=== PATIENT | male | born 1975 | race Caucasian/White ===

== ENCOUNTER 2020-03-06 13:45 | Outpatient (REF) | payer BC, SELFPAY ==
--- NOTE | 2020-03-06 13:36 | CT_ITS ---
EXAMINATION: CT ABDOMEN AND PELVIS WITHOUT AND WITH CONTRAST CLINICAL INFORMATION: Lesion right kidney status post cryoablation 11/03/2018. Follow-up. COMPARISON: CT abdomen and pelvis without and with contrast 03/09/2019 and 10/07/2018, CT-guided cryoablation 11/03/2018. Ultrasound kidneys 09/08/2018. TECHNIQUE: Multidetector volumetric imaging was performed of the abdomen and pelvis before and after the IV administration of 85 mL of Omnipaque 300 intravenous contrast. Sagittal and coronal reformatted images were obtained on the technologist's workstation. This CT examination was performed using dose optimization techniques as appropriate, variously including the following: *Automated exposure control *Adjustment of mA and/or kV according to patient size (this includes techniques or standardized protocols for targeted exams where dose is matched to indication/reason for exam; i.e. extremities or head) *Use of iterative reconstruction technique DLP: 1071 mGy-cm FINDINGS: LUNG BASES: There are 2 tiny pleural-based nodules under 4 mm left lateral base similar to prior exams. LIVER, GALLBLADDER, AND BILIARY TREE: The liver is normal in size and smooth in contour. There are 3 small stable subcentimeter hypodensities likely cysts, anterior left lobe series 3/, dome right lobe series 3/14 and inferior right lobe series 07/09. No interval hepatic parenchymal lesion. No intrahepatic ductal dilatation. There are multiple gallstones again seen in the gallbladder. No gallbladder dilatation or wall thickening or pericholecystic inflammatory changes. Common duct unremarkable. PANCREAS: Unremarkable SPLEEN: Unremarkable ADRENAL GLANDS: Unremarkable KIDNEYS AND URETERS: The kidneys are normal in size and enhance symmetrically. There is no hydronephrosis, hydroureter, calculi, or perinephric stranding. Left kidney shows no cystic or solid mass. The right kidney has lesion lateral interpolar region status post prior prior ablation. Measurements are obtained from the coronal and sagittal reconstructions and compared in same orientation with prior study. Current measurements are 2.0 x 2.3 x 2.2 cm. Prior post ablation measurements 2.6 x 2.4 x 2.8 cm in 03/09/2019. There is no enhancement appreciated. Precontrast attenuation is 15 HU and postcontrast attenuation 20 HU. Again, there is a small cyst medial interpolar region approximately 1.1 cm. BLADDER: Unremarkable GASTROINTESTINAL TRACT: No bowel obstruction or inflammatory changes in bowel or mesentery. Normal appendix. No ascites or fluid collection. ABDOMINAL WALL: Small fat-containing umbilical hernia approximately 2.2 x 1.3 x 2.6 cm. LYMPH NODES: No lymphadenopathy. VASCULAR: Unremarkable PELVIC VISCERA: Unremarkable OSSEOUS STRUCTURES: Unremarkable CT/CT abdomen pelvis wo/w con IMPRESSION: 1. Right renal mass slightly decreased in size since prior post ablation CT. No appreciable enhancement. Stable small right renal cyst. No adenopathy. 2. Probable small hepatic cyst stable. 3. Cholelithiasis. No gallbladder wall thickening or ductal dilatation.
[2020-03-06] MEDS: iohexoL 350 MG/ML 100 ML INFUS..BTL 85 ML IV (14:25)
== END 2020-03-06 13:46 | disposition home or self-care (01) ==
LOC: HO.CT 13:45
PROVIDERS: PCP Internal Medicine; Visit Provider Urology
DX: D41.00 Neoplasm of uncertain behavior of unspecified kidney (principal); R79.89 Other specified abnormal findings of blood chemistry
CPT/HCPCS: 74178; Q9967

== ENCOUNTER → 2020-03-21 11:50 | Outpatient (BNVA) | payer BC, SELFPAY | PROVIDERS: Visit Provider Urology | DX: Z76.89 Persons encountering health services in other specified circumstances (principal) ==

== ENCOUNTER 2020-04-08 08:22 | Emergency (ER) | payer BC, SELFPAY ==
[2020-04-08 08:24] VITALS: BP 177/95; PULSE 101; RESP 18; TEMP 36.6; O2SAT 97; BMI 33.0
--- NOTE | 2020-04-08 08:33 | XR_ITS ---
EXAMINATION: XR CHEST CLINICAL INFORMATION: Chest pain/SOB. COMPARISON: CT chest 09/16/2019 TECHNIQUE: Frontal view of the chest was obtained. FINDINGS: The lungs are hypoexpanded but clear of acute process. The heart size is normal. Mild prominence of perihilar markings seen. No pleural effusion. No gross bony abnormality. XR/XR chest 1V IMPRESSION: Hypoexpanded lungs without acute process. A repeat chest x-ray in inspiration and a lateral view can be performed
--- NOTE | 2020-04-08 08:33 | ECG_ITS ---
Test Reason : SHORTNESS OF BREATH Blood Pressure : / mmHG Vent. Rate : 097 BPM Atrial Rate : 097 BPM P-R Int : 140 ms QRS Dur : 094 ms QT Int : 374 ms P-R-T Axes : 002 -18 016 degrees QTc Int : 474 ms Normal sinus rhythm Minimal voltage criteria for LVH, may be normal variant Borderline ECG No previous ECGs available Referred By: Tatiana Valentine Electronically Signed By:PARDEEP VARGAS MD
[2020-04-08] MEDS: Albuterol Sulfate 90 MCG 8 GM INHALER 4 PUFF INHALE (09:02)
[2020-04-08 09:12] LABS: MANUAL DIFF FLAG NO
[2020-04-08 09:17] LABS: Hematocrit 43.2 % (42-52); Hemoglobin 14.8 g/dl (14.0-18.0); Imm Gran Abs Auto 0.01 X10*3/uL (0.00-0.03); Imm Gran Pct Auto 0.3 % (0.0-0.4); Lymphocytes Absolute Auto 0.9 X10*3/uL (1.2-4.9); Lymphocytes Percent Auto 23.9 % (20-40); Mean Corpuscular HGB Conc 34.3 g/dl (31.0-36.0); Mean Corpuscular Hemoglobin 28.9 pg (27.0-33.0); Mean Corpuscular Volume 84.4 fL (80-98); Mean Platelet Volume 9.3 fL (9.4-12.4); Monocytes Absolute Auto 0.3 X10*3/uL (0.1-1.2); Monocytes Percent Auto 7.5 % (2-11); Neutrophils Absolute Auto 2.6 X10*3/uL (2.0-8.3); Neutrophils Percent Auto 68.3 % (45-73); Platelet Count 141 X10*3/uL (160-400); Red Blood Count 5.12 X10*6/uL (4.60-5.80); Red Cell Distribution Width 12.1 % (11.0-16.0); White Blood Count 3.9 X10*3/uL (4.8-10.8)
[2020-04-08 09:43] LABS: Alanine Aminotransferase 100 U/L (0-40); Alkaline Phosphatase 46 U/L (39-117); Anion Gap 14 (12-20); Aspartate Amino Transferase 54 U/L (5-37); Bilirubin Direct 0.3 mg/dL (0.0-0.5); Bilirubin Total 0.5 mg/dL (0.0-1.0); Blood Urea Nitrogen 12 mg/dL (9-16); Calcium 7.9 mg/dL (8.4-10.2); Carbon Dioxide 25 mmol/L (22-29); Chloride 105 mmol/L (96-108); Creatinine Clr Calc Pharmacy 114.1; Estimated Glomerular Filt Rate > 60; Glucose Random 108 mg/dL (60-115); Lactate Dehydrogenase 315 U/L (118-273); Potassium 3.5 mmol/l (3.3-5.1); Sodium 140 mmol/L (135-145); Total Protein 6.6 g/dL (6.5-8.0)
[2020-04-08 09:49] LABS: B Type Natriuretic Peptide < 10 pg/mL (<100); Troponin-I High Sensitivity 30.8 ng/L (<3.5-35.0)
[2020-04-08 09:54] LABS: Influenza A PCR NEGATIVE (Negative); Influenza B PCR NEGATIVE (Negative); Resp Syncy Virus RNA Qual PCR NEGATIVE (Negative); SARS COV2 PCR INHOUSE POSITIVE (Negative)
[2020-04-08 10:00] LABS: Procalcitonin 0.08 ng/mL
[2020-04-08 10:03] LABS: Ferritin 985 ng/mL (20-250)
--- NOTE | 2020-04-08 10:06 | ED_ITS ---
HPI - SOB/Dyspnea General Chief Complaint: Dyspnea Stated Complaint: coughing,sob Time Seen by Provider: 04/08/20 08:33 Source: patient Mode of arrival: ambulatory History of Present Illness HPI Narrative: 44-year-old male with a past medical history of cholelithiasis, diverticulitis, fatty liver, hypertension, renal cancer, presenting to the ED complaining of fever T-max 101?, dry cough, difficulty breathing, chest tightness, and body aches x4 days. Reports pain worse with deep inspiration. 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 Denies known contact with [facility]. Denies chills, recent travel, LE edema, abdominal pain MD elicited complaint: shortness of breath, cough and chest pain Related Data Home Medications Medication Instructions Recorded Confirmed fluticasone propionate 50 1 spray INTRANASAL DAILY 02/21/20 02/21/20 mcg/actuation nasal spray,suspension Previous Rx's Medication Instructions Recorded azithromycin See Rx Instructions .ROUTE 04/08/20 .COMPLEX #6 tab benzonatate [Tessalon Perles] 100 mg PO BID PRN #14 cap 04/08/20 prednisone 40 mg PO DAILY 5 Days #10 tab 04/08/20 Allergies Allergy/AdvReac Type Severity Reaction Status Date / Time Penicillins [PENICILLINS] Allergy Severe ANAPHYLAXIS Verified 02/21/20 11:08 strawberry Allergy Severe swelling Verified 02/21/20 11:08 penicillin V Allergy Unknown anaphylaxis Verified 02/21/20 11:08 Review of Systems Review of Systems: Constitutional: No Weight loss, + Fever, No Chills, No Night Sweats, No Fatigue, No Malaise ENT/Mouth: No Nasal Congestion, No Sinus Pain, No Hoarseness, No sore throat Cardiovascular: + Chest Pain, + SOB, + Dyspnea on Exertion, No Orthopnea, No Edema, No Palpitations Respiratory: + Cough, No Sputum, No Wheezing Gastrointestinal: No Nausea, No Vomiting, + Diarrhea, No Constipation, No Abdominal pain Musculoskeletal: No joint pain, No Myalgias, No Joint Swelling Skin: No Skin Lesions, No rash Yes all other systems are reviewed and are negative [facility], [facility] Past Medical History Attestation statement: The following information was validated with the patient. Medical History (Updated 04/08/20 @ 13:12 by MURTAZA Cross) Cholelithiasis Diverticulitis Fatty liver Hypertension Obesity (BMI 30-39.9) Renal cancer Surgical History History of excision of lesion Family History Family History Father Liver cancer Hepatitis C Past heart attack Mother No problems noted. Paternal Grandmother Mouth cancer Sister Substance abuse Social History Social History Alcohol intake: never Smoking Status: Never smoker Smoked in Last 30 Days: No Use of substances other than those prescribed or required for medical reasons: No Advance Directives: No Advance Directives Information Provided: No Physical Exam Vital Signs: Vital Signs: Last Vital Signs Temp 97.8 F 04/08/20 08:24 Pulse 80 04/08/20 12:05 Resp 16 04/08/20 12:05 BP 177/95 H 04/08/20 08:24 Pulse Ox 94 04/08/20 12:05 Body Mass Index 33.0 Const: General: cooperative and healthy appearing Orie ntation/consciousness: patient oriented x3 Limitations: no limitations HENMT: Head: Yes normal to inspection Ears: hearing grossly normal bilaterally General nose exam: Normal external nose present Face and sinus: Yes normal facial exam Eyes: General: appearance normal, both eyes and all related structures EOM: EOMs intact bilaterally Neck: Neck: Yes normal visual inspection Resp: Effort & Inspection: normal respiratory effort Auscultation: clear to auscultation bilaterally, no rales, no rhonchi and no wheezes Cardio: Rate: regular rate Heart sounds: S1 normal heart sound present and S2 normal heart sound present GI: Inspection: Yes normal to inspection Palpation (GI): Soft to palpation Skin: Rashes: no rashes Wounds: no wounds Neuro: General: patient oriented x3 Gait exam (Neuro): Normal gait present Extrem: General: Yes normal to inspection Course Course Course Narrative: * Leukopenia of 3.9, ferritin/LDH/CRP elevated. AST/ALT mildly elevated * Troponin elevated 30.8 > will obtain 3 hour repeat > repeat 3 hour equivocal * CXR showing hypoexpanded lungs without acute process * 1138-repeat chest x-ray showing bilateral prominent facial markings in both lungs suspicious for interstitial pneumonitis > Azithromycin ordered. Will obtain dry CT chest due to patient's history. Is COVID-19 positive * Patient ambulated with pulse ox in the ED and maintain saturation of 94% on room air without any shortness of breath * Ground-glass infiltrates compatible with COVID-19 > lab/imaging results discussed with patient including worrisome signs and symptoms and very strict return precautions. He verbalized understanding and would like to be discharged home. MDM - SOB/Dyspnea MDM Narrative Medical decision making narrative: 44-year-old male with a past medical history of cholelithiasis, diverticulitis, fatty liver, hypertension, renal cancer, presenting to the ED complaining of fever T-max 101?, dry cough, difficulty breathing, chest tightness, and body aches x4 days. On exam mildly tachycardic, NAD/nontoxic appearing, lungs CTA. Concern for COVID-19/viral syndrome vs PE. Lower concern for bacterial infection. Low concern for CHF/ACS Plan: EKG, labs, CXR, COVID-19, albuterol, reassess Lab Data Result diagrams: 04/08/20 09:00 04/08/20 09:00 Labs: Lab Results 04/08/20 04/08/20 04/08/20 Range/Units 09:00 09:00 09:00 WBC 3.9 L (4.8-10.8) X10*3/uL RBC 5.12 (4.60-5.80) X10*6/uL Hgb 14.8 (14.0-18.0) g/dl Hct 43.2 (42-52) % MCV 84.4 (80-98) fL MCH 28.9 (27.0-33.0) pg MCHC 34.3 (31.0-36.0) g/dl RDW 12.1 (11.0-16.0) % Plt Count 141 L (160-400) X10*3/uL MPV 9.3 L (9.4-12.4) fL Immature Gran % (Auto) 0.3 (0.0-0.4) % Neut % (Auto) 68.3 (45-73) % Lymph % (Auto) 23.9 (20-40) % Kingfisher % (Auto) 7.5 (2-11) % Eos % (Auto) 0.0 (0-4) % Baso % (Auto) 0.0 (0-2) % Lymph # (Auto) 0.9 L (1.2-4.9) X10*3/uL Kingfisher # (Auto) 0.3 (0.1-1.2) X10*3/uL Eos # (Auto) 0.0 (0.0-0.4) X10*3/uL Baso # (Auto) 0.0 (0.0-0.2) X10*3/uL Abs Immat Gran (auto) 0.01 (0.00-0.03) X10*3/uL Absolute Neuts (auto) 2.6 (2.0-8.3) X10*3/uL Absolute Nucleated RBC 0.000 (0.0-0.012) X10*3/uL Nucleated RBC % (auto) 0.0 (0.0-0.2) /100WBC PT 13.4 H (10.8-13.0) SEC INR 1.1 (0.9-1.1) APTT 33.5 (24.1-38.0) SEC D-Dimer 219 NG/ML Hold Blue Top SEE NOTE Sodium 140 (135-145) mmol/L Potassium 3.5 (3.3-5.1) mmol/l Chloride 105 (96-108) mmol/L Carbon Dioxide 25 (22-29) mmol/L Anion Gap 14 (12-20) BUN 12 (9-16) mg/dL Creatinine 1.02 (0.5-1.4) mg/dL Estim Creat Clear Calc 114.1 Estimated GFR > 60 Random Glucose 108 (60-115) mg/dL Calcium 7.9 L (8.4-10.2) mg/dL Ferritin 985 H (20-250) ng/mL Total Bilirubin 0.5 (0.0-1.0) mg/dL Direct Bilirubin 0.3 (0.0-0.5) mg/dL AST 54 H (5-37) U/L ALT 100 H (0-40) U/L Alkaline Phosphatase 46 (39-117) U/L Lactate Dehydrogenase 315 H (118-273) U/L Troponin I High Sens (<3.5-35.0) ng/L C-Reactive Protein 2.60 H (< or = 0.50) mg/dL B-Natriuretic Peptide (<100) pg/mL Total Protein 6.6 (6.5-8.0) g/dL Albumin 4.0 (3.5-5.0) g/dL Procalcitonin ng/mL Coronavirus (PCR) (Negative) Influenza Type A (PCR) (Negative) Influenza Type B (PCR) (Negative) RSV RNA Qual (PCR) (Negative) 04/08/20 04/08/20 04/08/20 Range/Units 09:00 09:00 09:00 WBC (4.8-10.8) X10*3/uL RBC (4.60-5.80) X10*6/uL Hgb (14.0-18.0) g/dl Hct (42-52) % MCV (80-98) fL MCH (27.0-33.0) pg MCHC (31.0-36.0) g/dl RDW (11.0-16.0) % Plt Count (160-400) X10*3/uL MPV (9.4-12.4) fL Immature Gran % (Auto) (0.0-0.4) % Neut % (Auto) (45-73) % Lymph % (Auto) (20-40) % Kingfisher % (Auto) (2-11) % Eos % (Auto) (0-4) % Baso % (Auto) (0-2) % Lymph # (Auto) (1.2-4.9) X10*3/uL Kingfisher # (Auto) (0.1-1.2) X10*3/uL Eos # (Auto) (0.0-0.4) X10*3/uL Baso # (Auto) (0.0-0.2) X10*3/uL Abs Immat Gran (auto) (0.00-0.03) X10*3/uL Absolute Neuts (auto) (2.0-8.3) X10*3/uL Absolute Nucleated RBC (0.0-0.012) X10*3/uL Nucleated RBC % (auto) (0.0-0.2) /100WBC PT (10.8-13.0) SEC INR (0.9-1.1) APTT (24.1-38.0) SEC D-Dimer NG/ML Hold Blue Top Sodium (135-145) mmol/L Potassium (3.3-5.1) mmol/l Chloride (96-108) mmol/L Carbon Dioxide (22-29) mmol/L Anion Gap (12-20) BUN (9-16) mg/dL Creatinine (0.5-1.4) mg/dL Estim Creat Clear Calc Estimated GFR Random Glucose (60-115) mg/dL Calcium (8.4-10.2) mg/dL Ferritin (20-250) ng/mL Total Bilirubin (0.0-1.0) mg/dL Direct Bilirubin (0.0-0.5) mg/dL AST (5-37) U/L ALT (0-40) U/L Alkaline Phosphatase (39-117) U/L Lactate Dehydrogenase (118-273) U/L Troponin I High Sens 30.8 (<3.5-35.0) ng/L C-Reactive Protein (< or = 0.50) mg/dL B-Natriuretic Peptide < 10 (<100) pg/mL Total Protein (6.5-8.0) g/dL Albumin (3.5-5.0) g/dL Procalcitonin 0.08 ng/mL Coronavirus (PCR) POSITIVE A (Negative) Influenza Type A (PCR) NEGATIVE (Negative) Influenza Type B (PCR) NEGATIVE (Negative) RSV RNA Qual (PCR) NEGATIVE (Negative) 04/08/20 Range/Units 11:30 WBC (4.8-10.8) X10*3/uL RBC (4.60-5.80) X10*6/uL Hgb (14.0-18.0) g/dl Hct (42-52) % MCV (80-98) fL MCH (27.0-33.0) pg MCHC (31.0-36.0) g/dl RDW (11.0-16.0) % Plt Count (160-400) X10*3/uL MPV (9.4-12.4) fL Immature Gran % (Auto) (0.0-0.4) % Neut % (Auto) (45-73) % Lymph % (Auto) (20-40) % Kingfisher % (Auto) (2-11) % Eos % (Auto) (0-4) % Baso % (Auto) (0-2) % Lymph # (Auto) (1.2-4.9) X10*3/uL Kingfisher # (Auto) (0.1-1.2) X10*3/uL Eos # (Auto) (0.0-0.4) X10*3/uL Baso # (Auto) (0.0-0.2) X10*3/uL Abs Immat Gran (auto) (0.00-0.03) X10*3/uL Absolute Neuts (auto) (2.0-8.3) X10*3/uL Absolute Nucleated RBC (0.0-0.012) X10*3/uL Nucleated RBC % (auto) (0.0-0.2) /100WBC PT (10.8-13.0) SEC INR (0.9-1.1) APTT (24.1-38.0) SEC D-Dimer NG/ML Hold Blue Top Sodium (135-145) mmol/L Potassium (3.3-5.1) mmol/l Chloride (96-108) mmol/L Carbon Dioxide (22-29) mmol/L Anion Gap (12-20) BUN (9-16) mg/dL Creatinine (0.5-1.4) mg/dL Estim Creat Clear Calc Estimated GFR Random Glucose (60-115) mg/dL Calcium (8.4-10.2) mg/dL Ferritin (20-250) ng/mL Total Bilirubin (0.0-1.0) mg/dL Direct Bilirubin (0.0-0.5) mg/dL AST (5-37) U/L ALT (0-40) U/L Alkaline Phosphatase (39-117) U/L Lactate Dehydrogenase (118-273) U/L Troponin I High Sens 33.4 (<3.5-35.0) ng/L C-Reactive Protein (< or = 0.50) mg/dL B-Natriuretic Peptide (<100) pg/mL Total Protein (6.5-8.0) g/dL Albumin (3.5-5.0) g/dL Procalcitonin ng/mL Coronavirus (PCR) (Negative) Influenza Type A (PCR) (Negative) Influenza Type B (PCR) (Negative) RSV RNA Qual (PCR) (Negative) Discharge Plan Discharge Clinical Impression: COVID-19, Pneumonia due to COVID-19 virus Patient Disposition: Home, Self-Care Instructions: COVID-19 (Coronavirus Disease 2019) (ED) Additional Instructions: You have COVID-19, and pneumonia due to coronavirus You need to follow state and Federal guidelines for self isolation Azithromycin as antibiotic, take as prescribed In addition take prednisone which is a steroid to help with her breathing Use inhaler that was supplied to in the emergency department Mauroalexander Melidaconrado for coughing take as needed If her symptoms persist or worsen, if constant worsening chest pain, shortness breath, or fever unresolved by medications return to the ED immediately Call your doctor to inform them CDC Guidelines for home isolation: - Stay away from others - WEAR A MASK if you are sick AND STAY HOME - Cover your mouth and nose with a tissue when you cough or sneeze. Dispose of tissues in a lined trash can and wash your hands immediately with soap and water for at least 20 seconds. If soap and water are not available, clean hands with alcohol-based hand visitor services technician that contains at least 60% alcohol. - Clean your hands often with soap and water for at least 20 seconds - Avoid touching your eyes, nose and mouth with unwashed hands - Do not share dishes, drinking glasses, cups, eating utensils, towels, or bedding with other people in your home. After using these items, wash them thoroughly with soap and water or put in the technologist development. - Clean high-touch surfaces in your isolation area ( sick room and bathroom) every day; let a caregiver clean and disinfect high-touch surfaces in other areas of the home. Clean the area or item with soap and water or another detergent if it is dirty. Then, use a household disinfectant. - Limit contact with pets and animals: If you must care for a pet, wash your hands before and after interacting with them) Prescriptions: New azithromycin 250 mg tablet See Rx Instructions .ROUTE .COMPLEX Qty: 6 RF: 0 prednisone 20 mg tablet 40 mg PO DAILY 5 Days Qty: 10 RF: 0 benzonatate [Tessalon Perles] 100 mg capsule 100 mg PO BID PRN (Reason: cough) Qty: 14 RF: 0 No Action fluticasone propionate 50 mcg/actuation spray,suspension 1 spray intranasal DAILY RF: 0 Referrals: James Mcdonough MD [Primary Care Provider] - 2 days (call) Stand Alone Forms: Work/School Release
--- NOTE | 2020-04-08 10:16 | XR_ITS ---
EXAMINATION: XR CHEST CLINICAL INFORMATION: Chest pain and SOB. COMPARISON: None TECHNIQUE: 2 views of the chest were obtained. FINDINGS: Repeated chest reveals lungs to be better expanded with bilateral prominent interstitial markings in both lungs suspicious for interstitial pneumonitis. No confluent infiltrate or pleural effusion seen. The heart size and pulmonary vascularity is normal. No gross bony abnormality seen. XR/XR chest 2V IMPRESSION: Bilateral prominent fissure markings in both lungs suspicious for interstitial pneumonitis. No confluent infiltrate or pleural effusion seen.
[2020-04-08 10:29] LABS: INTERNATIONAL NORM RATIO 1.1 (0.9-1.1); Prothrombin Time 13.4 SEC (10.8-13.0)
[2020-04-08 10:32] LABS: D Dimer 219 NG/ML; Partial Thromboplastin Time 33.5 SEC (24.1-38.0)
--- NOTE | 2020-04-08 11:36 | CT_ITS ---
EXAMINATION: CT CHEST WITHOUT CONTRAST CLINICAL INFORMATION: Covid COMPARISON: Chest radiographs performed earlier today TECHNIQUE: Multidetector volumetric CT imaging of the chest was done. Axial MIP volume rendering provided. Sagittal and coronal reformatted images were obtained. This CT examination was performed using dose optimization techniques as appropriate, variously including the following: *Automated exposure control *Adjustment of mA and/or kV according to patient size (this includes techniques or standardized protocols for targeted exams where dose is matched to indication/reason for exam; i.e. extremities or head) *Use of iterative reconstruction technique DLP: 433 mGy-cm FINDINGS: LUNGS: Multifocal groundglass infiltrates seen scattered throughout the lungs characteristic of Covid 19 infection. No solid lung masses are seen MEDIASTINUM: The mediastinum is normal. PLEURA: There is no pleural effusion. No pleural mass or thickening. AXILLA: No lymphadenopathy. UPPER ABDOMEN: Multiple dependent small gallstones are present in the gallbladder without cholecystitis. There is one nondependent mural calcification seen medially which may represent a calcified polyp. OSSEOUS STRUCTURES: Unremarkable. CT/CT chest wo con IMPRESSION: Multifocal groundglass infiltrates compatible with Covid 19 pulmonary involvement.
[2020-04-08] MEDS: Azithromycin 500 MG TABLET PO (11:41)
[2020-04-08 11:49] VITALS: PULSE 78; RESP 16; O2SAT 96
--- NOTE | 2020-04-08 11:49 | PC.NURSE ---
WALKING O2 SAT DOWN TO 88% ON ROOM AIR. HR UP TO 160. PA AWARE. NO PLETH ON MACHINE TO SEE ACCURACY OF NUMBERS.,
--- NOTE | 2020-04-08 12:03 | PC.NURSE ---
PT REAMBULATED WITH A VISIBLE PLETH VITAL MACHINE. SAT NO LOWER THAN 94%
[2020-04-08 12:05] VITALS: PULSE 80; RESP 16; O2SAT 94
[2020-04-08 12:12] LABS: Troponin-I High Sensitivity 33.4 ng/L (<3.5-35.0)
[2020-04-08] MEDS: methylPREDNISolone Sod Succ/PF 125 MG/2 ML VIAL IVPUSH (12:18)
== END 2020-04-08 13:41 | disposition home or self-care (01) ==
PROVIDERS: Physician Assistant; Emergency Provider Emergency Medicine Emergency Medical Services; PCP Internal Medicine
DX: U07.1 COVID-19 (principal); J12.89 Other viral pneumonia; I10 Essential (primary) hypertension; Z85.53 Personal history of malignant neoplasm of renal pelvis
CPT/HCPCS: 0241U; 36415; 71045; 71046; 71250; 80048; 80076; 82728; 83615; 83880; 84145; 84484; 85025; 85379; 85610; 85730; 86140; 93005; 96374; 99284; J2930

== ENCOUNTER 2020-11-14 07:46 | Outpatient (REF) | payer BC, SELFPAY ==
--- NOTE | ~2020-11-14 | US_ITS ---
EXAMINATION: US RETROPERITONEAL LIMITED (RENAL ONLY) CLINICAL INFORMATION: Calculus of kidney; history of right renal neoplasm status-post cryoablation.. COMPARISON: CT abdomen pelvis 03/06/2020. Ultrasound renals 09/08/2018. X-ray KUB 08/03/2009. TECHNIQUE: Real-time imaging of the kidneys. FINDINGS: RIGHT KIDNEY: 12.9 x 6.9 x 7.7 cm (SAG x AP x TRV). The kidney is normal in size, contour, and echogenicity. Renal cortical thickness is normal. No renal calculi or hydronephrosis. At the interpolar aspect, a 1.7 cm maximal diameter simple cyst is seen. At the interpolar aspect medially, a 2.0 x 2.0 x 1.8 cm solid-appearing mass is seen. This shows no associated color Doppler flow. This corresponds with the mass seen at this location on the CT examination of the abdomen and pelvis dated 03/06/2020 (5:89). On the ultrasound examination dated 08/31/2018, this measured 2.7 x 2.5 x 2.5 cm. LEFT KIDNEY: 13.2 x 6.4 x 5.7 cm (SAG x AP x TRV). The kidney is normal in size, contour, and echogenicity. Renal cortical thickness is normal. No calculi or focal parenchymal lesions. No hydronephrosis. US/US renal BI IMPRESSION: 1. A right renal solid mass is redemonstrated, with dimensions as above. Recommend continued Urology evaluation and management. 2. A simple right renal cyst is as well noted.
== END 2020-11-14 07:47 | disposition home or self-care (01) ==
LOC: HO.US 07:46
PROVIDERS: Visit Provider Urology
DX: N20.0 Calculus of kidney (principal); C64.1 Malignant neoplasm of right kidney, except renal pelvis
CPT/HCPCS: 76775

== ENCOUNTER → 2020-12-13 13:55 | Outpatient (BNVA) | payer BC, SELFPAY | PROVIDERS: PCP Internal Medicine; Visit Provider Urology ==

== ENCOUNTER 2021-05-07 15:22 | Outpatient (REF) | payer BC, SELFPAY ==
--- NOTE | ~2021-05-07 | US_ITS ---
EXAMINATION: US RETROPERITONEAL COMPLETE (RENAL) CLINICAL INFORMATION: Malignant neoplasm of right kidney with history of cryoablation. COMPARISON: Renal ultrasound 11/14/2020. CT abdomen and pelvis 03/06/2020. TECHNIQUE: Real-time imaging of the kidneys and bladder. FINDINGS: RIGHT KIDNEY: 12.4 x 6.8 x 7.2 cm (SAG x AP x TRV). The kidney is normal in size, contour, and echogenicity. Renal cortical thickness is normal. No renal calculi or hydronephrosis. There is an echogenic mass lower pole measuring 2.4 x 2.4 x 2.2 cm which has undergone cryoablation. Previously it measured 2.0 x 2.0 x 1.8 cm. Previously visualized midpole cyst not seen at this time. LEFT KIDNEY: 13.5 x 6.5 x 6.1 cm (SAG x AP x TRV). The kidney is normal in size, contour, and echogenicity. Renal cortical thickness is normal. No calculi or focal parenchymal lesions. No hydronephrosis. BLADDER: Well distended and normal. Bilateral ureteral jets are demonstrated. Prevoid bladder volume is 164 mL. Postvoid bladder volume is 15 mL. PROSTATE: The prostate volume measures 26 mL. There is echogenic calcification seen. US/US retroperitoneal comp IMPRESSION: Solid echogenic mass lower pole right kidney now measures 2.4 x 2.4 x 2.2 cm. It has undergone cryoablation. On last ultrasound exam 12/01/2020, it measured 2.0 cm. Minimal change from previous study. Normal left kidney. Normal prostate gland with echogenic calcifications within. Normal bilateral ureteral jets seen. Tiny postvoid residual bladder volume of 15 mL.
== END 2021-05-07 15:23 | disposition home or self-care (01) ==
LOC: HO.US 15:22
PROVIDERS: PCP Internal Medicine; Visit Provider Urology
DX: C64.1 Malignant neoplasm of right kidney, except renal pelvis (principal)
CPT/HCPCS: 76770

== ENCOUNTER → 2021-06-12 11:50 | Outpatient (BNVA) | payer BC, SELFPAY | PROVIDERS: PCP Internal Medicine; Visit Provider Urology ==

== ENCOUNTER 2021-12-04 08:23 | Outpatient (REF) | payer BC, SELFPAY ==
--- NOTE | ~2021-12-04 | US_ITS ---
EXAMINATION: US RETROPERITONEAL LIMITED (RENAL ONLY) CLINICAL INFORMATION: Calculus of kidney. COMPARISON: Ultrasound renal 11/14/2020. CT abdomen pelvis 03/06/2020. TECHNIQUE: Real-time imaging of the kidneys. FINDINGS: RIGHT KIDNEY: 13.1 x 6.3 x 6.2 cm (SAG x AP x TRV). The kidney is normal in size, contour, and echogenicity. Renal cortical thickness is normal. There is a heterogeneous lesion in the anterior mid to lower pole. This measures 2.2 x 1.9 x 2.4 cm. This does not appear appreciably changed from previous exam when this measured 2.4 x 2.4 x 2.2 cm. No calculi. No hydronephrosis. LEFT KIDNEY: 13.5 x 7.1 x 5.9 cm (SAG x AP x TRV). The kidney is normal in size, contour, and echogenicity. Renal cortical thickness is normal. No calculi or focal parenchymal lesions. No hydronephrosis. US/US renal BI IMPRESSION: Stable appearance to the lesion in the anterior mid to lower pole the right kidney from previous ultrasounds. Normal left kidney.
== END 2021-12-04 08:24 | disposition home or self-care (01) ==
LOC: HO.HMGCX 08:23
PROVIDERS: PCP Internal Medicine; Visit Provider Urology
DX: N20.0 Calculus of kidney (principal)
CPT/HCPCS: 76775

== ENCOUNTER 2021-12-21 13:06 | Outpatient (AMB) | payer BC, SELFPAY ==
--- NOTE | 2021-12-21 10:36 | MHC.OFFVIS ---
Intake Intake Visit Reasons: 6mth follow up with US (US?) Intake Note: Patient is present for ultrasound follow up Reports no medication changes Forensic Identification Specialist Required: No Accompanied by: Self / Same As Patient Allergies Penicillins [PENICILLINS] Allergy (Severe, Verified 01/21/23 10:57) ANAPHYLAXIS strawberry Allergy (Severe, Verified 01/21/23 10:57) swelling penicillin V Allergy (Unknown, Verified 01/21/23 10:57) anaphylaxis Medication List - Last Reconciled 12/21/21 by Andrei Oro MD azithromycin take 500 mg today (day 1), then 250 mg for 4 days (days 2-5) benzonatate (Tessalon Perles) 100 mg PO BID PRN fluticasone propionate 50 mcg/actuation 1 spray intranasal DAILY prednisone 40 mg (2 x 20 mg) PO DAILY 5 days HPI HPI Comments History of Present Illness Details ?José VILLAGRAN is a very pleasant male. He is a patient of Dr. Mcdonough. He is seen for the following urologic conditions. - renal cancer Imaging results discussed - kids did play hockey this season Continue with q6 months imaging Has had 6 month [address] which showed cryotherapy effect Continue ultrasound every 6 months to [address] Renal lesion:? Renal carcinoma cryotherapy October 2018 Here for follow-up renal cell carcinoma ? They present for further of renal cell cancer ? The renal mass was diagnosed?incidentally, during evaluation for, GI symptoms.? Imaging included?08/30 , a renal ultrasound, showing a solid mass, 2-3.0 cm in size, on the right , a CT (computed tomography) scan of the abdomen/pelvis - 2.5cm mass right lower pole - no enhancement studies ?09/[address] (computed tomography) scan of the abdomen/pelvis - with contrast - 2.8cm right renal lesion anterior ?04/[address] (computed tomography) scan of the abdomen/pelvis, cryotherapy effect ?10/01 KUB normal 04/02 CT scan cryotherapy with effect maximum size 2 cm (18 month) - 11/01 renal ultrasound 2 cm right dense lesion - 05/05 renal ultrasound 2 cm right dense lesion with question of small stone on left - 12/03 renal ultrasound 2 cm right dense lesion ? Prior treatment(s) included?10/30 , cryotherapy.? Staging of initial cancer?10/30 Renal Biopsy, T1a.? 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 Current symptoms include? hematuria ?No ? dysuria ?No ? fever ?No ? chills ?No ? Recent labs include?10/30 , a creatinine 1.2 ?03/02 Cr 1.01, 12.20 Cr 1.02 ? Follow up imaging includes?03/02 Cystic change, no enhancement, good treatment effect.? PFS Medical History Hypertension Diverticulitis Renal cancer Fatty liver Cholelithiasis Obesity (BMI 30-39.9) Surgical History History of excision of lesion Family History Father Liver cancer Hepatitis C Past heart attack Mother No problems noted. Paternal Grandmother Mouth cancer Sister Substance abuse Social History Housing: House Alcohol intake: current Patient Tobacco Use Status: Never used Tobacco e-Cigarette/Vaping Use: Never Used Second Hand Smoke Exposure: No Current occupational status: employed Cognitive needs: No Hearing needs: No Vision needs: No Review of Systems Const Denies chills and Denies fever(s) Card Reports no additional complaints and Denies syncope Resp Denies cough GI Denies abdominal pain and Denies heartburn Reports as per HPI and Denies change in libido Neuro Denies syncope Psych Denies change in libido Endo Denies change in libido Physical Exam Const General: cooperative, healthy appearing, comfortable and no acute distress Orientation/consciousness: patient oriented x3 HEENT Face and sinus: Yes normal facial exam Mouth: moist mucous membranes Neck Neck: Yes normal visual inspection, Yes full ROM and Yes trachea midline Chest Chest palpation & inspection: normal inspection of the chest Resp Effort & Inspection: normal respiratory effort, able to speak in complete sentences and no respiratory distress GI Inspection: Yes normal to inspection Back/Spine/Pelvis Cervical Spine: normal cervical lordosis Thoracic/Lumbar Spine: thoracic and lumbar spine normal to inspection Skin General skin exam: no rashes or lesions noted Neuro General: patient oriented x3, gait normal, tone normal and moves all extremities Extrem General: Yes normal to inspection and Yes capillary refill normal Assessment & Plan Assessment & Plan (1) 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 Code(s): C64.9 - Malignant neoplasm of unspecified kidney, except renal pelvis Qualifiers: Laterality: right Qualified Code(s): C64.1 - Malignant neoplasm of right kidney, except renal pelvis Plan Six-month follow-up renal imaging Orders: Orders Creatinine 6 Months C64.1 - Malignant neoplasm of right kidney, except renal pelvis CT abdomen wo/w IV con 6 Months C64.1 - Malignant neoplasm of right kidney, except renal pelvis Blood Urea Nitrogen 6 Months C64.1 - Malignant neoplasm of right kidney, except renal pelvis Patient Instructions: Imaging studies, laboratory and physical exam results were discussed and reviewed in detail. No major barriers to patient understanding were identified. An opportunity to ask questions regarding the treatment plan was provided. All questions were answered. The patient expressed understanding and agreement with the above treatment plan. The patient is aware they should contact our office by phone for worsening of their current condition or the appearance of new urologic symptoms. Compliance is encouraged with any medications and followup testing that is ordered. It is a privilege to participate in the urologic care of your patient. If you have any questions or concerns regarding treatment for the above conditions, or other urologic issues, please do not hesitate to contact me. The office telephone contact is [phone]. This note is constructed using voice recognition software. While every effort has been made to ensure accuracy internal communications intern errors may have been included. Yours sincerely, Dr Andrei Oro MD, [facility] - Urology Providers of Expert, Compassionate Care for the Genitourinary System Coding Level of Care Code Est Pt Level 3 (97771) Diagnoses Malignant neoplasm of right kidney C64.1 Laterality: right
== END 2021-12-21 14:09 | disposition home or self-care (01) ==
LOC: HO.HUSH 13:06
PROVIDERS: PCP Internal Medicine; Visit Provider Urology
DX: C64.1 Malignant neoplasm of right kidney, except renal pelvis (principal)
CPT/HCPCS: 99499

== ENCOUNTER 2022-05-02 09:45 | Outpatient (REF) | payer BC, SELFPAY ==
[2022-05-02 11:17] LABS: MANUAL DIFF FLAG NO
[2022-05-02 11:23] LABS: Basophils Percent Auto 0.7 % (0-2); Eosinophils Absolute Auto 0.2 X10*3/uL (0.0-0.4); Eosinophils Percent Auto 3.3 % (0-4); Hematocrit 45.2 % (42.0-52.0); Hemoglobin 15.9 g/dl (14.0-18.0); Imm Gran Abs Auto 0.02 X10*3/uL (0.00-0.03); Imm Gran Pct Auto 0.3 % (0.0-0.4); Lymphocytes Absolute Auto 1.9 X10*3/uL (1.2-4.9); Lymphocytes Percent Auto 33.7 % (20-40); Mean Corpuscular HGB Conc 35.2 g/dl (31.0-36.0); Mean Corpuscular Hemoglobin 28.8 pg (27.0-33.0); Mean Corpuscular Volume 81.7 fL (80.0-98.0); Mean Platelet Volume 9.5 fL (9.4-12.4); Monocytes Absolute Auto 0.4 X10*3/uL (0.1-1.2); Monocytes Percent Auto 7.5 % (2-11); Neutrophils Absolute Auto 3.1 x10*3/uL (2.0-8.3); Neutrophils Percent Auto 54.5 % (45-73); Platelet Count 259 X10*3/uL (160-400); Red Blood Count 5.53 X10*6/uL (4.60-5.80); Red Cell Distribution Width 12.1 % (11.0-16.0); White Blood Count 5.8 X10*3/uL (4.8-10.8)
[2022-05-02 11:46] LABS: Alanine Aminotransferase 57 U/L (0-40); Albumin Level 4.3 g/dL (3.5-5.0); Alkaline Phosphatase 67 U/L (39-117); Anion Gap 10 (12-20); Aspartate Amino Transferase 25 U/L (5-37); Bilirubin Total 0.8 mg/dL (0.0-1.0); Blood Urea Nitrogen 12 mg/dL (9-16); Calcium 9.2 mg/dL (8.4-10.2); Carbon Dioxide 26 mmol/L (22-29); Chloride 108 mmol/L (96-108); Cholesterol 180 mg/dL; Estimated Glomerular Filt Rate > 60; Glucose Random 101 mg/dL (60-115); HDL Cholesterol 32 mg/dL; LDL Cholesterol Calculated 117 mg/dl; Potassium 3.5 mmol/L (3.3-5.1); Sodium 140 mmol/L (135-145); Total Protein 6.8 g/dL (6.5-8.0); Triglycerides 156 mg/dL
[2022-05-02 12:06] LABS: Free T4 (Free Thyroxine) 1.04 ng/dL (0.71-1.85); Thyroid Stimulating Hormone 2.03 uIU/mL (0.32-4.0)
[2022-05-02 12:11] LABS: Folate 12.5 ng/mL (> or = 4.0); Vitamin B12 383 pg/mL (200-900)
== END 2022-05-02 09:46 | disposition home or self-care (01) ==
LOC: HO.HMGCLDS 09:45
PROVIDERS: PCP Internal Medicine; Visit Provider Internal Medicine
DX: C64.1 Malignant neoplasm of right kidney, except renal pelvis (principal); E78.00 Pure hypercholesterolemia, unspecified
CPT/HCPCS: 36415; 80053; 80061; 82607; 82746; 84439; 84443; 85025

== ENCOUNTER 2022-06-12 14:15 | Outpatient (REF) | payer BC, SELFPAY ==
--- NOTE | ~2022-06-12 | CT_ITS ---
EXAMINATION: CT ABDOMEN WITHOUT AND WITH CONTRAST CLINICAL INFORMATION: Malignant neoplasm right kidney. COMPARISON: Renal ultrasound 11/14/2021, CT chest 04/08/2020, CT abdomen pelvis 03/06/2020 TECHNIQUE: Contiguous axial thin section helical images of the abdomen were performed before and after the administration of oral contrast and 85 mL of Omnipaque 350 intravenous contrast. The data set was reformatted in the coronal and sagittal planes and reviewed on an independent workstation. This CT examination was performed using dose optimization techniques as appropriate, variously including the following: *Automated exposure control *Adjustment of mA and/or kV according to patient size (this includes techniques or standardized protocols for targeted exams where dose is matched to indication/reason for exam; i.e. extremities or head) *Use of iterative reconstruction technique DLP: 731 mGy-cm. FINDINGS: LUNG BASES: The visualized lung bases are unremarkable. LIVER, GALLBLADDER, AND BILIARY TREE: The liver is normal in size, shape, and attenuation. 5 small hypodensities are seen in the liver, the largest measuring 6 mm (4:25). These are unchanged from the 2019 study and are consistent with benign simple cysts. No worrisome solid focal hepatic lesion or biliary ductal dilatation is present. Small layering gallstones present in the gallbladder which is otherwise unremarkable with no evidence of pericholecystic inflammatory changes. PANCREAS: Unremarkable. SPLEEN: Unremarkable. ADRENAL GLANDS: Unremarkable. KIDNEYS AND URETERS: The left kidney is unremarkable. Again seen is an area of prior ablation in the right kidney with residual masslike area which has decreased in size currently measuring 2.3 x 1.0 x 1.6 cm previously measuring 3.1 x 1.7 x 2.0 cm. This area shows no significant enhancement measuring 16 Hounsfield units prior to IV contrast and 16 Hounsfield units after IV contrast. A small benign Bosniak class I cyst is noted medially without change. No new renal masses. GASTROINTESTINAL TRACT: The visualized bowel unremarkable. ABDOMINAL WALL: No significant hernia is appreciated. LYMPH NODES: No retroperitoneal lymphadenopathy. VASCULAR: Unremarkable. OSSEOUS STRUCTURES: Mild degenerative changes in the spine most marked in the lower thoracic region. CT/CT abdomen wo/w IV con IMPRESSION: 1. Continued decrease in size of right renal mass status post ablation. 2. No evidence of metastatic disease. 3. Incidental note made of benign hepatic cysts, cholelithiasis and degenerative changes in the spine. Fleischner guidelines were followed.
[2022-06-12] MEDS: iohexoL 350 MG/ML 100 ML INFUS..BTL IV (14:50)
== END 2022-06-12 14:16 | disposition home or self-care (01) ==
LOC: HO.CT 14:15
PROVIDERS: PCP Internal Medicine; Visit Provider Urology
DX: C64.1 Malignant neoplasm of right kidney, except renal pelvis (principal)
CPT/HCPCS: 74170; Q9967

== ENCOUNTER → 2022-06-28 11:50 | Outpatient (BNVA) | payer BC, SELFPAY | PROVIDERS: PCP Internal Medicine; Visit Provider Urology | DX: Z13.89 Encounter for screening for other disorder (principal) ==

== ENCOUNTER 2022-12-27 08:19 | Outpatient (REF) | payer BC, SELFPAY ==
--- NOTE | ~2022-12-27 | US_ITS ---
EXAMINATION: US RETROPERITONEAL LIMITED (RENAL ONLY) CLINICAL INFORMATION: Malignant neoplasm of right kidney, except renal pelvis. COMPARISON: CT abdomen 06/12/2022. Renal ultrasound 12/04/2021 and 05/07/2021. TECHNIQUE: Real-time imaging of the kidneys. FINDINGS: RIGHT KIDNEY: 11.9 x 5.6 x 6.6 cm (SAG x AP x TRV). Right renal 2.3 x 1.6 x 2.1 cm heterogeneous, hypoechoic midpole cortical mass measured 2.2 x 1.9 x 2.4 cm on 12/04/2021 and 2.4 x 2.4 x 2.2 cm on 05/07/2021. There is a given history of cryoablation. CT scan of 06/12/2022 demonstrated a 2.3 x 1.0 x 1.6 cm mass. The previously identified right renal cyst is not seen, however, visualization is limited. No hydronephrosis. No renal calculi. LEFT KIDNEY: 12.8 x 7.1 x 5.8 cm (SAG x AP x TRV). No hydronephrosis. No renal calculi. Limited visualization. US/US renal BI IMPRESSION: Right renal 2.3 cm mass is stable in size with given history of cryoablation. No hydronephrosis. No renal calculi.
== END 2022-12-27 08:20 | disposition home or self-care (01) ==
LOC: HO.HMGCX 08:19
PROVIDERS: PCP Internal Medicine; Visit Provider Urology
DX: C64.1 Malignant neoplasm of right kidney, except renal pelvis (principal)
CPT/HCPCS: 76775

== ENCOUNTER 2023-01-21 10:55 | Outpatient (AMB) | payer BC, SELFPAY ==
--- NOTE | 2023-01-21 10:55 | MHC.OFFVIS ---
Intake Intake Visit Reasons: 6m/US(set) Intake Note: Patient is present for Telephone CT Scan Follow Up (Renal Cancer) Urology Med: None Antibiotic Allergy: Penicillins Blood Thinner: None Allergies Penicillins [PENICILLINS] Allergy (Severe, Verified 01/21/23 10:57) ANAPHYLAXIS strawberry Allergy (Severe, Verified 01/21/23 10:57) swelling penicillin V Allergy (Unknown, Verified 01/21/23 10:57) anaphylaxis HPI HPI Comments History of Present Illness Details ?José VILLAGRAN is a very pleasant male. He is a patient of Dr. Mcdonough. He is seen for the following urologic conditions. - renal cancer Telemedicine Evaluation 15 min Consultation [employer] Margie Video attempted Imaging results discussed - kids did play hockey this summer - freshman in high school Continue with q6 months imaging Has had 6 month and [address] which showed cryotherapy effect Continue ultrasound every 6 months to [address] Renal lesion:? Renal carcinoma cryotherapy October 2018 Here for follow-up renal cell carcinoma ? They present for further of renal cell cancer ? The renal mass was diagnosed?incidentally, during evaluation for, GI symptoms.? Imaging included?08/30 , a renal ultrasound, showing a solid mass, 2-3.0 cm in size, on the right , a CT (computed tomography) scan of the abdomen/pelvis - 2.5cm mass right lower pole - no enhancement studies - 09/[address] (computed tomography) scan of the abdomen/pelvis - with contrast - 2.8cm right renal lesion anterior - 04/[address] (computed tomography) scan of the abdomen/pelvis, cryotherapy effect, 10/01 KUB normal, 04/02 CT scan cryotherapy with effect maximum size 2 cm (18 month) - 11/01 renal ultrasound 2 cm right dense lesion, 05/05 renal ultrasound 2 cm right dense lesion with question of small stone on left, 12/03 renal ultrasound 2 cm right dense lesion - 07/04 CT scarring at right kidney ? Prior treatment(s) included?10/30 , cryotherapy ? Staging of initial cancer?10/30 Renal Biopsy, T1a ? 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 Recent labs include?10/30 , a creatinine 1.2 - 03/02 Cr 1.01, 12.20 Cr 1.02, 05/06 Cr 1.2 ? Follow up imaging includes?03/02 Cystic change, no enhancement, good treatment effect.? [facility] Medical History Hypertension Diverticulitis Renal cancer Fatty liver Cholelithiasis Obesity (BMI 30-39.9) Surgical History History of excision of lesion Family History Father Liver cancer Hepatitis C Past heart attack Mother No problems noted. Paternal Grandmother Mouth cancer Sister Substance abuse Social History Housing: House Alcohol intake: current Patient Tobacco Use Status: Never used Tobacco e-Cigarette/Vaping Use: Never Used Second Hand Smoke Exposure: No Current occupational status: employed Cognitive needs: No Hearing needs: No Vision needs: No Review of Systems Const All systems reviewed & are unremarkable except as noted in HPI and below Reports no additional complaints Resp Reports no additional complaints GI Reports no additional complaints Reports as per HPI Musc Reports no additional complaints Physical Exam Telemedicine evaluation Appropriate responses Regular breathing rate and rhythm HEENT Head: Yes normal to inspection Ears: hearing grossly normal bilaterally Eyes General: appearance normal, both eyes and all related structures Neck Neck: Yes normal visual inspection Chest Chest palpation & inspection: normal inspection of the chest Resp Effort & Inspection: normal respiratory effort and able to speak in complete sentences Assessment & Plan Assessment & Plan (1) 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 Code(s): C64.9 - Malignant neoplasm of unspecified kidney, except renal pelvis Qualifiers: Laterality: right Qualified Code(s): C64.1 - Malignant neoplasm of right kidney, except renal pelvis Plan Six month follow-up imaging Orders: Orders US renal BI 6 Months C64.1 - Malignant neoplasm of right kidney, except renal pelvis Patient Instructions: Imaging studies, laboratory and physical exam results were discussed and reviewed in detail. No major barriers to patient understanding were identified. An opportunity to ask questions regarding the treatment plan was provided. All questions were answered. The patient expressed understanding and agreement with the above treatment plan. The patient is aware they should contact our office by phone for worsening of their current condition or the appearance of new urologic symptoms. Compliance is encouraged with any medications and followup testing that is ordered. It is a privilege to participate in the urologic care of your patient. If you have any questions or concerns regarding treatment for the above conditions, or other urologic issues, please do not hesitate to contact me. The office telephone contact is [phone]. This note is constructed using voice recognition software. While every effort has been made to ensure accuracy high school library media specialist errors may have been included. Yours sincerely, Dr Andrei Oro MD, [facility] - Urology Providers of Expert, Compassionate Care for the Genitourinary System Telehealth Telehealth Location of provider rendering services: practice address Location of patient: address on file Patient Identification confirmed using: Name, : Yes Telehealth method: video Patient verbally consented to treatment: Yes Patient verbally consented to billing insurance company: Yes Patient informed of any privacy concerns related to visit: Yes Coding Level of Care Code Tele Est Pt Level 3 (60138) Diagnoses Malignant neoplasm of right kidney C64.1 Laterality: right
== END 2023-01-21 12:28 | disposition home or self-care (01) ==
LOC: HO.HUSH 10:55
PROVIDERS: PCP Internal Medicine; Visit Provider Urology
DX: C64.1 Malignant neoplasm of right kidney, except renal pelvis (principal)
CPT/HCPCS: 99213

== ENCOUNTER → 2023-01-21 10:55 | Outpatient (BNVA) | payer BC, SELFPAY | PROVIDERS: PCP Internal Medicine; Visit Provider Urology ==

== ENCOUNTER 2023-07-16 14:19 | Outpatient (REF) | payer BC, SELFPAY ==
--- NOTE | ~2023-07-16 | US_ITS ---
EXAMINATION: US RETROPERITONEAL LIMITED (RENAL ONLY) CLINICAL INFORMATION: Malignant neoplasm of right kidney, except renal pelvis. COMPARISON: Renal ultrasound 12/27/2022 and 12/04/2021. CT abdomen 06/12/2022. TECHNIQUE: Real-time imaging of the kidneys. Limited visualization due to bowel gas. FINDINGS: RIGHT KIDNEY: 12.6 x 6.5 x 6.8 cm (SAG x AP x TRV). Mid pole 1.8 x 2.0 x 1.7 cm heterogeneous, hypoechoic mass, previously measured 2.3 x 1.6 x 2.1 cm on 12/30/2022, and 2.0 x 2.0 x 1.8 cm on 11/14/2020. CT scan of June 12, 2022 demonstrated mass measuring 2.3 x 1.0 x 1.6 cm, decreased in size. Limited visualization. Renal cortical thickness is normal. No renal calculi or hydronephrosis. LEFT KIDNEY: 13.6 x 6.6 x 7.3 cm (SAG x AP x TRV). No hydronephrosis. No renal calculi. Renal cortical thickness is normal. Limited visualization. US/US renal BI IMPRESSION: Right renal mid pole 2.0 cm heterogeneous, hypoechoic mass, previously measured 2.3 cm on 12/30/2022, and 2.0 cm on 11/14/2020. CT scan of June 12, 2022 demonstrated mass measuring 2.3 x 1.0 x 1.6 cm, decreased in size.
== END 2023-07-16 14:20 | disposition home or self-care (01) ==
LOC: HO.HMGCX 14:19
PROVIDERS: PCP Internal Medicine; Visit Provider Urology
DX: C64.1 Malignant neoplasm of right kidney, except renal pelvis (principal)
CPT/HCPCS: 76775

== ENCOUNTER 2023-07-22 11:28 | Outpatient (AMB) | payer BC, SELFPAY ==
--- NOTE | 2023-07-22 11:45 | A.OFFVIS_ITS ---
Intake Intake Visit Reasons: 6M US(set)Confirmed Intake Note: Patient is Present for Follow Up Urology Medication: none Antibiotic Allergies: Penicillins Blood Thinners: none Allergies Penicillins [PENICILLINS] Allergy (Severe, Verified 01/21/23 10:57) ANAPHYLAXIS strawberry Allergy (Severe, Verified 01/21/23 10:57) swelling penicillin V Allergy (Unknown, Verified 01/21/23 10:57) anaphylaxis Medication List - Last Reconciled 07/22/23 by Andrei Oro MD fluticasone propionate 50 mcg/actuation 1 spray intranasal DAILY HPI HPI Comments History of Present Illness Details ?José VILLAGRAN is a very pleasant male. He is a patient of Dr. Mcdonough. He is seen for the following urologic conditions. 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 Renal carcinoma cryotherapy October 2018 Here for follow-up renal cell carcinoma ? They present for further of renal cell cancer ? The renal mass was diagnosed?incidentally, during evaluation for, GI symptoms.? Imaging included?08/30 , a renal ultrasound, showing a solid mass, 2-3.0 cm in size, on the right , a CT (computed tomography) scan of the abdomen/pelvis - 2.5cm mass right lower pole - no enhancement studies - 09/[address] (computed tomography) scan of the abdomen/pelvis - with contrast - 2.8cm right renal lesion anterior - 04/[address] (computed tomography) scan of the abdomen/pelvis, cryotherapy effect, 10/01 KUB normal, 04/02 CT scan cryotherapy with effect maximum size 2 cm (18 month) - 11/01 renal ultrasound 2 cm right dense lesion, 05/05 renal ultrasound 2 cm right dense lesion with question of small stone on left, 12/03 renal ultrasound 2 cm right dense lesion - 07/04 CT scarring at right kidney - 08/05 US Right renal mid pole 2.0 cm heterogeneous, hypoechoic mass, previously measured 2.3 cm on 12/30/2022, and 2.0 cm on 11/14/2020. CT scan of June 12, 2022 demonstrated mass measuring 2.3 x 1.0 x 1.6 cm, decreased in size. ? Prior treatment(s) included?10/30 , cryotherapy ? Staging of initial cancer?10/30 Renal Biopsy, T1a ? 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 Recent labs include?10/30 , a creatinine 1.2 - 03/02 Cr 1.01, 12.20 Cr 1.02, 05/06 Cr 1.2 ? Follow up imaging includes?03/02 Cystic change, no enhancement, good treatment effect.? PFSH Medical History Hypertension Diverticulitis Renal cancer Fatty liver Cholelithiasis Obesity (BMI 30-39.9) Surgical History History of excision of lesion Family History Father Liver cancer Hepatitis C Past heart attack Mother No problems noted. Paternal Grandmother Mouth cancer Sister Substance abuse Social History Housing: House Alcohol intake: current Patient Tobacco Use Status: Never used Tobacco e-Cigarette/Vaping Use: Never Used Second Hand Smoke Exposure: No Current occupational status: employed Cognitive needs: No Hearing needs: No Vision needs: No Review of Systems Const Denies chills and Denies fever(s) Card Reports no additional complaints and Denies syncope Resp Denies cough GI Denies abdominal pain and Denies heartburn Reports as per HPI and Denies change in libido Neuro Denies syncope Psych Denies change in libido Endo Denies change in libido Physical Exam Const General: cooperative, healthy appearing, comfortable and no acute distress Orientation/consciousness: patient oriented x3 HEENT Face and sinus: Yes normal facial exam Mouth: moist mucous membranes Neck Neck: Yes normal visual inspection, Yes full ROM and Yes trachea midline Chest Chest palpation & inspection: normal inspection of the chest Resp Effort & Inspection: normal respiratory effort, able to speak in complete sentences and no respiratory distress GI Inspection: Yes normal to inspection Back/Spine/Pelvis Cervical Spine: normal cervical lordosis Thoracic/Lumbar Spine: thoracic and lumbar spine normal to inspection Skin General skin exam: no rashes or lesions noted Neuro General: patient oriented x3, gait normal, tone normal and moves all extremities Extrem General: Yes normal to inspection and Yes capillary refill normal Assessment & Plan Assessment & Plan (1) 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 Code(s): C64.9 - Malignant neoplasm of unspecified kidney, except renal pelvis Qualifiers: Laterality: right Qualified Code(s): C64.1 - Malignant neoplasm of right kidney, except renal pelvis Plan Twelve month follow-up ultrasound Orders: Orders US renal BI 12 Months C64.1 - Malignant neoplasm of right kidney, except renal pelvis Patient Instructions: Imaging studies, laboratory and physical exam results were discussed and reviewed in detail. No major barriers to patient understanding were identified. An opportunity to ask questions regarding the treatment plan was provided. All questions were answered. The patient expressed understanding and agreement with the above treatment plan. The patient is aware they should contact our office by phone for worsening of their current condition or the appearance of new urologic symptoms. Compliance is encouraged with any medications and followup testing that is ordered. It is a privilege to participate in the urologic care of your patient. If you have any questions or concerns regarding treatment for the above conditions, or other urologic issues, please do not hesitate to contact me. The office telephone contact is [phone]. This note is constructed using voice recognition software. While every effort has been made to ensure accuracy pantographer errors may have been included. Yours sincerely, Dr Andrei Oro MD, [facility] - Urology Providers of Expert, Compassionate Care for the Genitourinary System Coding Level of Care Code Est Pt Level 3 (52675) Diagnoses Malignant neoplasm of right kidney C64.1 Laterality: right
== END 2023-07-22 12:31 | disposition home or self-care (01) ==
PROVIDERS: PCP Internal Medicine; Visit Provider Urology
DX: C64.1 Malignant neoplasm of right kidney, except renal pelvis (principal)
CPT/HCPCS: 99213

== ENCOUNTER → 2023-07-22 11:28 | Outpatient (BNVA) | payer BC, SELFPAY | PROVIDERS: PCP Internal Medicine; Visit Provider Urology ==

== ENCOUNTER 2023-09-11 12:12 | Outpatient (AMB) | payer BC, SELFPAY ==
[2023-09-11 12:32] VITALS: BP 176/112; PULSE 83; O2SAT 97; BMI 37.6
--- NOTE | 2023-09-11 12:32 | A.OFFPC_ITS ---
Vital Signs 09/11/23 12:32 Height 5 ft 10 in Weight 262 lb 0.2 oz BMI 37.6 BP 176/112 H Blood Pressure Location Lt brachial Position Sitting Pulse 83 Pulse Source Pulse Oximeter Pulse Oximetry (%) 97 Oxygen Delivery Method Room Air Intake Visit Reasons: Annual Exam Mine Analyst Required: No Allergies Penicillins [PENICILLINS] Allergy (Severe, Verified 09/11/23 12:32) ANAPHYLAXIS strawberry Allergy (Severe, Verified 09/11/23 12:32) swelling penicillin V Allergy (Unknown, Verified 09/11/23 12:32) anaphylaxis Medication List - Last Reconciled 09/11/23 by James Mcdonough MD fluticasone propionate 50 mcg/actuation 1 spray intranasal DAILY Tobacco use date assessed: 09/11/23 Dental Screening Dental Screen Date: 09/11/23 Did you have a dental visit in the last 12 months?: No Did you have a dental problem in the last 6 months where you did not have access to dental care?: No Was dental information given to patient?: Patient has dentist HPI Annual Exam HPI Details 47-year-old obese male with a history of kidney cancer coming in for physical exam last seen in 05/03/2022. Patient has followed up with the urology 08/02/2023 and [address] October [address]. CT scan 07/01/2022 Continued decrease in size of right renal mass status post ablation. 2. No evidence of metastatic disease. 3. Incidental note made of benign hepat ic cysts, cholelithiasis and degenerative changes in the spine. 08/02/2023 ultrasoundRight renal mid pole 2.0 cm heterogeneous, hypoechoic mass, previously measured 2.3 cm on 12/30/2022, and 2.0 cm on 11/14/2020. CT scan of June 12, 2022 demonstrated mass measuring 2.3 x 1.0 x 1.6 cm, decreased in size. [facility] Medical History (Updated 09/11/23 @ 12:43 by James Mcdonough MD) Hypertension Diverticulitis Renal cancer Fatty liver Cholelithiasis Obesity (BMI 30-39.9) Surgical History History of excision of lesion Family History Father Liver cancer Hepatitis C Past heart attack Mother No problems noted. Paternal Grandmother Mouth cancer Sister Substance abuse Social History (Updated 09/11/23 @ 12:52 by James Mcdonough MD) Housing: House Alcohol intake: current Comment: once a month 1 drink Patient Tobacco Use Status: Never used Tobacco e-Cigarette/Vaping Use: Never Used Second Hand Smoke Exposure: No Current occupational status: employed Cognitive needs: No Hearing needs: No Vision needs: No Questionnaire PHQ-9 Over the last 2 weeks, how often have you been bothered by any of the following problems? 1. Little interest or pleasure in doing things: not at all 2. Feeling down, depressed, or hopeless: not at all 3. Trouble falling or staying asleep, or sleeping too much: not at all 4. Feeling tired or having little energy: not at all 5. Poor appetite or overeating: not at all 6. Feeling bad about yourself - or that you are a failure or have let yourself or your family down: not at all 7. Trouble concentrating on things, such as reading the newspaper or watching television: not at all 8. Moving or speaking so slowly that other people could have noticed. Or the opposite - being so fidgety or restless that you have been moving around a lot more than usual: not at all 9. Thoughts that you would be better off or of hurting yourself in some way: not at all Total score: 0 Depression Screening Interpretation: Negative Depression Screening Done: Yes Source: Developed by Drs. Frandy Salmon, Rosalia Vargas, José Vanegas and colleagues, with an educational edwin from [employer]. Thrive Questionnaire Date Thrive assessed: 09/11/23 I am a: Patient What is your living situation today?: I have a steady place to live Within the past 12 months, did the food you bought not last and you didn't have the money to get more?: Never true Within the past 12 months, did you worry whether your food would run out before you got money to buy more?: Never true Do you have trouble paying for medicines?: No Do you have trouble getting transportation to medical appointments?: No Do you have trouble paying your heating and electricity bill?: No Do you have trouble taking care of your child, family member or friend?: No Do you have trouble with day-to-day activities such as bathing, preparing meals, shopping, managing finances, etc.?: No Are you currently unemployed and looking for a job?: No Are you interested in more education?: No Please select the resources that you would like help with: None Currently or been in a relationship where the following occur: no concerns reported THRIVE Score: 0 AUDIT C Alcohol Use Questionnaire (AUDIT-C) 1. How often do you have a drink containing alcohol?: Monthly or less 2. How many drinks containing alcohol do you have on a typical day when you are drinking?: 1 or 2 3. How often do you have six or more drinks on one occasion?: Never Total Score: 1 LUC-7 AMB Questionnaire LUC-7 Date LUC - 7 assessed: 09/11/23 Feeling nervous, anxious, or on edge: 0 = Not at all Not being able to stop or control worryin = Not at all Worrying too much about different things: 0 = Not at all Trouble relaxin = Not at all Being so restless that it is hard to sit still: 0 = Not at all Becoming easily annoyed or irritable: 0 = Not at all Feeling afraid as if something awful might happen: 0 = Not at all Total LUC-7 score (0-4 normal; 5-9 mild; 10-14 moderate; 15-21 severe): 0 Source: Developed by Drs. Frandy Salmon, Rosalia Vargas, José Vanegas and colleagues, with an educational edwin from [employer]. LUC-7 Assessment Billing LUC-7 Assessment Tool: LUC-7 Assessment 28927 Review of Systems Const Denies poor appetite and Denies weakness Eyes Denies no additional complaints ENT Reports Normal hearing present, Denies dizziness, Denies nasal congestion, Denies tinnitus and Denies sore throat Card Denies chest pain, Denies syncope, Denies rapid heart rate and Denies dyspnea Resp Denies cough and Denies dyspnea GI Denies change in stool character, Reports constipation, Denies diarrhea, Denies nausea and Denies vomiting Denies dysuria and Denies urinary frequency Neuro Reports Normal hearing present, Denies confusion, Denies dizziness, Denies syncope and Denies weakness Psych Denies confusion Physical exam (Primary Care) Vital Signs: Last Vital Signs Pulse 83 09/11/23 12:32 BP 176/112 H 09/11/23 12:32 Pulse Ox 97 09/11/23 12:32 Oxygen Delivery Method Room Air 09/11/23 12:32 BMI result Body Mass Index 37.6 Tobacco/Smoking Status: Tobacco use Status Tobacco use date assessed 09/11/23 09/11/23 12:38 Patient Tobacco Use Status Never used Tobacco 09/11/23 12:52 e-Cigarette/Vaping Use Never Used 09/11/23 12:52 PHQ-9: PHQ-9 Score PHQ-9: Total score 0 09/11/23 12:43 Depression Screening Interpretation: Negative Thrive Assessment: Date of Thrive Assessment Date Thrive assessed 09/11/23 09/11/23 12:38 Currently or been in a relationship where the following occur: no concerns reported Const General: No confusion Orientation/consciousness: No confusion HENMT Head: Yes normocephalic Ears: external ears normal and TM's normal bilaterally Face and sinus: Yes normal facial exam Mouth: moist mucous membranes Throat: Yes tonsils normal Eyes Conjunctivae: conjunctivae normal Pupils: Equal, round and reactive pupils present and Pupil accommodation reflex normal Direct Ophthalmoscopy: normal light reflex Neck Neck: No lymphadenopathy Thyroid: Thyroid normal Chest Chest palpation & inspection: normal inspection of the chest Resp Effort & Inspection: normal respiratory effort and no audible wheezes Auscultation: clear to auscultation bilaterally, no crackles, no wheezes and lung sounds not diminished Cardio Rate: regular rate Rhythm: regular rhythm Peripheral pulses: radial pulses present and dorsalis pedis present GI Palpation (GI): no masses Auscultation: normal bowel sounds and normoactive bowel sounds Rectal Exam - Male: Yes deferred Skin General skin exam: no rashes or lesions noted Rashes: no rashes Neuro General: No confusion Cranial nerves: Yes Equal, round and reactive pupils present and Yes Normal hea ring present Cognition (Neuro): normal cognition Gait exam (Neuro): Normal gait present Motor exam (neuro): 5/5 motor strength present throughout Deep tendon reflexes (DTR's): Right brachioradialis reflex intensity grade: 2+, Left brachioradialis reflex intensity grade: 2+, Right patellar reflex intensity grade: 2+ and Left patellar reflex intensity grade: 2+ Extrem General: No edema Immunizations Boostrix Tdap 2.5 Lf unit-8 mcg-5 Lf/0.5 mL intramuscular syringe Performing Provider: James Mcdonough MD [facility] Administered by: ANGEL Piper on 09/11/23 13:06 Dose Route Admin Location Dispensed Lot Number Expiration Date NDC Esl Professor 0.5 mL IM Left Deltoid 0.5 mL [id number] 11/19/25 29017-620-09 [employer] VIS Given Date VIS Provided VIS Publication Date 09/11/23 Single Vaccine 20 Eligibility Eligibility Date Funding Source Not [facility] Eligible 09/11/23 Private Assessment and Plan Assessment & Plan (1) 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 Code(s): C64.9 - Malignant neoplasm of unspecified kidney, except renal pelvis Qualifiers: Laterality: right Qualified Code(s): C64.1 - Malignant neoplasm of right kidney, except renal pelvis Plan: Continue to follow-up with urology (2) Obesity (BMI 30-39.9): Code(s): E66.9 - Obesity, unspecified Plan: Diet and exercise (3) Hypertension: Code(s): I10 - Essential (primary) hypertension Qualifiers: Hypertension type: essential hypertension Qualified Code(s): I10 - Essential (primary) hypertension Plan: Blood pressure noted to be elevated (4) Colon cancer screening: Code(s): Z12.11 - Encounter for screening for malignant neoplasm of colon Plan: Reminded about colonoscopy (5) Cholelithiasis: Comment: 05/03/2022 Code(s): K80.20 - Calculus of gallbladder without cholecystitis without obstruction Plan: Low-fat diet and exercise Orders: Orders TDaP Immunization Today Z23 - Encounter for immunization Complete Blood Count Auto Diff Today Z00.00 - Encounter for general adult medical examination without abnormal findings Comprehensive Met. Panel Today Z00.00 - Encounter for general adult medical examination without abnormal findings Free T4 (Free Thyroxine) Today Z00.00 - Encounter for general adult medical examination without abnormal findings Thyroid Stimulating Hormone Today Z00.00 - Encounter for general adult medical examination without abnormal findings Lipid Panel Today E78.00 - Pure hypercholesterolemia, unspecified, Z00.00 - Encounter for general adult medical examination without abnormal findings Vitamin B12 and Folate Today Z00.00 - Encounter for general adult medical examination without abnormal findings Referrals Gastroenterology Referral Z12.11 - Encounter for screening for malignant neoplasm of colon Medications: New tirzepatide (weight loss) (Zepbound) 2.5 mg (0.5 mL) subcut QWEEK 4 weeks 2 mL 0RF E66.9 - Obesity, unspecified lisinopril-hydrochlorothiazide 10-12.5 mg 1 tab PO DAILY 30 tabs 4RF I10 - Essential (primary) hypertension Coding Level of Care Code Est Pt Prev Care 40-64y(32675) Diagnoses Malignant neoplasm of right kidney C64.1 Laterality: right Obesity (BMI 30-39.9) E66.9 Essential hypertension I10 Hypertension type: essential hypertension Colon cancer screening Z12.11 Cholelithiasis K80.20 Additional Codes LUC-7 Assessment Billing - LUC-7 Assessment Tool: LUC-7 Assessment 23481 ([id number])
== END 2023-09-11 13:13 | disposition home or self-care (01) ==
PROVIDERS: PCP Internal Medicine; Visit Provider Internal Medicine
DX: Z00.00 Encounter for general adult medical examination without abnormal findings (principal); C64.1 Malignant neoplasm of right kidney, except renal pelvis; I10 Essential (primary) hypertension; Z23 Encounter for immunization; K80.20 Calculus of gallbladder without cholecystitis without obstruction; E66.9 Obesity, unspecified; Z12.11 Encounter for screening for malignant neoplasm of colon
CPT/HCPCS: 90471; 90715; 99396

== ENCOUNTER 2023-11-19 08:23 | Outpatient (REF) | payer BC, SELFPAY ==
[2023-11-19 10:14] LABS: MANUAL DIFF FLAG NO
[2023-11-19 10:23] LABS: Basophils Percent Auto 0.6 % (0-2); Eosinophils Absolute Auto 0.3 X10*3/uL (0.0-0.4); Eosinophils Percent Auto 4.2 % (0-4); Hematocrit 43.7 % (42.0-52.0); Hemoglobin 15.4 g/dl (14.0-18.0); Imm Gran Abs Auto 0.02 X10*3/uL (0.00-0.03); Imm Gran Pct Auto 0.3 % (0.0-0.4); Lymphocytes Absolute Auto 1.7 X10*3/uL (1.2-4.9); Lymphocytes Percent Auto 24.1 % (20-40); Mean Corpuscular HGB Conc 35.2 g/dl (31.0-36.0); Mean Corpuscular Hemoglobin 29.3 pg (27.0-33.0); Mean Corpuscular Volume 83.2 fL (80.0-98.0); Mean Platelet Volume 9.4 fL (9.4-12.4); Monocytes Absolute Auto 0.5 X10*3/uL (0.1-1.2); Monocytes Percent Auto 7.3 % (2-11); Neutrophils Absolute Auto 4.5 x10*3/uL (2.0-8.3); Neutrophils Percent Auto 63.5 % (45-73); Platelet Count 270 X10*3/uL (160-400); Red Blood Count 5.25 X10*6/uL (4.60-5.80); Red Cell Distribution Width 12.7 % (11.0-16.0); White Blood Count 7.1 X10*3/uL (4.8-10.8)
[2023-11-19 10:47] LABS: Alanine Aminotransferase 51 U/L (0-40); Albumin Level 4.3 g/dL (3.5-5.0); Alkaline Phosphatase 63 U/L (39-117); Anion Gap 12 (12-20); Aspartate Amino Transferase 24 U/L (5-37); Bilirubin Total 0.4 mg/dL (0.0-1.0); Blood Urea Nitrogen 12 mg/dL (9-16); Calcium 9.5 mg/dL (8.4-10.2); Carbon Dioxide 27 mmol/L (22-29); Chloride 108 mmol/L (96-108); Cholesterol 142 mg/dL (<200); Estimated Glomerular Filt Rate > 60; Glucose Random 92 mg/dL (60-115); HDL Cholesterol 31 mg/dL (>40); LDL Cholesterol Calculated 85 mg/dL (<100); Potassium 3.7 mmol/L (3.3-5.1); Sodium 143 mmol/L (135-145); Triglycerides 134 mg/dL (<150)
[2023-11-19 11:05] LABS: Folate 4.5 ng/mL (> or = 4.0); Thyroid Stimulating Hormone 1.15 uIU/mL (0.32-4.0); Vitamin B12 428 pg/mL (200-900)
== END 2023-11-19 08:24 | disposition home or self-care (01) ==
LOC: HO.HMGCLDS 08:23
PROVIDERS: PCP Internal Medicine; Visit Provider Internal Medicine
DX: Z00.00 Encounter for general adult medical examination without abnormal findings (principal); E78.00 Pure hypercholesterolemia, unspecified
CPT/HCPCS: 36415; 80053; 80061; 82607; 82746; 84439; 84443; 85025

== ENCOUNTER 2023-12-05 10:13 | Outpatient (AMB) | payer BC, SELFPAY ==
[2023-12-05 10:27] VITALS: BP 140/90; PULSE 78; O2SAT 99; BMI 34.7
--- NOTE | 2023-12-05 10:27 | MHC.PC.OV ---
Vital Signs 12/05/23 10:27 Height 5 ft 10 in Weight 242 lb 2 oz BMI 34.7 BP 140/90 H Blood Pressure Location Lt brachial Position Sitting Pulse 78 Pulse Source Pulse Oximeter Pulse Oximetry (%) 99 Oxygen Delivery Method Room Air Intake Visit Reasons: Hypertension Header Machine Operator Required: No Accompanied by: Self / Same As Patient Allergies Penicillins [PENICILLINS] Allergy (Severe, Verified 12/05/23 10:27) ANAPHYLAXIS strawberry Allergy (Severe, Verified 12/05/23 10:27) swelling penicillin V Allergy (Unknown, Verified 12/05/23 10:27) anaphylaxis Medication List - Last Reconciled 12/05/23 by James Mcdonough MD fluticasone propionate 50 mcg/actuation 1 spray intranasal DAILY lisinopril-hydrochlorothiazide 10-12.5 mg 1 tab PO BID Zepbound (tirzepatide (weight loss)) 10 mg (0.5 mL) subcut QWEEK 30 days NS Tobacco use date assessed: 12/05/23 Dental Screening Dental Screen Date: 12/05/23 Did you have a dental visit in the last 12 months?: No Did you have a dental problem in the last 6 months where you did not have access to dental care?: No Was dental information given to patient?: No HPI Hypertension HPI Details 48-year-old obese male with a history of kidney cancer 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 Patient was reminded about colonoscopy. Patient has seen Urology in July has been advised ultrasound yearly. Ultrasound done in JulyRight renal mid pole 2.0 cm heterogeneous, hypoechoic mass, previously measured 2.3 cm on 12/30/2022, and 2.0 cm on 11/14/2020. CT scan of June 12, 2022 demonstrated mass measuring 2.3 x 1.0 x 1.6 cm, decreased in size. [facility] Medical History (Updated 12/05/23 @ 11:01 by James Mcdonough MD) Hypertension Diverticulitis Renal cancer Fatty liver Cholelithiasis Obesity (BMI 30-39.9) Surgical History History of excision of lesion Family History Father Liver cancer Hepatitis C Past heart attack Mother No problems noted. Paternal Grandmother Mouth cancer Sister Substance abuse Social History (Updated 09/11/23 @ 12:52 by James Mcdonough MD) Housing: House Alcohol intake: current Comment: once a month 1 drink Patient Tobacco Use Status: Never used Tobacco e-Cigarette/Vaping Use: Never Used Second Hand Smoke Exposure: No service: No Current occupational status: employed Current occupational exposures/hazards: No Cognitive needs: No Hearing needs: No Vision needs: No Questionnaire PHQ-9 Over the last 2 weeks, how often have you been bothered by any of the following problems? 1. Little interest or pleasure in doing things: not at all 2. Feeling down, depressed, or hopeless: not at all 3. Trouble falling or staying asleep, or sleeping too much: not at all 4. Feeling tired or having little energy: not at all 5. Poor appetite or overeating: not at all 6. Feeling bad about yourself - or that you are a failure or have let yourself or your family down: not at all 7. Trouble concentrating on things, such as reading the newspaper or watching television: not at all 8. Moving or speaking so slowly that other people could have noticed. Or the opposite - being so fidgety or restless that you have been moving around a lot more than usual: not at all 9. Thoughts that you would be better off or of hurting yourself in some way: not at all Total score: 0 Depression Screening Interpretation: Negative Depression Screening Done: Yes Source: Developed by Drs. Frandy Salmon, Rosalia Vargas, José Vanegas and colleagues, with an educational edwin from [employer]. Thrive Questionnaire Date Thrive assessed: 12/05/23 I am a: Patient What is your living situation today?: I have a steady place to live Within the past 12 months, did the food you bought not last and you didn't have the money to get more?: Never true Within the past 12 months, did you worry whether your food would run out before you got money to buy more?: Never true Do you have trouble paying for medicines?: No Do you have trouble getting transportation to medical appointments?: No Do you have trouble paying your heating and electricity bill?: No Do you have trouble taking care of your child, family member or friend?: No Do you have trouble with day-to-day activities such as bathing, preparing meals, shopping, managing finances, etc.?: No Are you currently unemployed and looking for a job?: No Are you interested in more education?: No Please select the resources that you would like help with: None Currently or been in a relationship where the following occur: No concerns reported THRIVE Score: 0 AUDIT C Alcohol Use Questionnaire (AUDIT-C) 1. How often do you have a drink containing alcohol?: Monthly or less 2. How many drinks containing alcohol do you have on a typical day when you are drinking?: 1 or 2 3. How often do you have six or more drinks on one occasion?: Never Total Score: 1 LUC-7 AMB Questionnaire LUC-7 Date LUC - 7 assessed: 12/05/23 Feeling nervous, anxious, or on edge: 0 = Not at all Not being able to stop or control worryin = Not at all Worrying too much about different things: 0 = Not at all Trouble relaxin = Not at all Being so restless that it is hard to sit still: 0 = Not at all Becoming easily annoyed or irritable: 0 = Not at all Feeling afraid as if something awful might happen: 0 = Not at all Total LUC-7 score (0-4 normal; 5-9 mild; 10-14 moderate; 15-21 severe): 0 Source: Developed by Drs. Frandy Salmon, Rosalia Vargas, José Vanegas and colleagues, with an educational edwin from [employer]. LUC-7 Assessment Billing LUC-7 Assessment Tool: LUC-7 Assessment [id number] Physical exam (Primary Care) Vital Signs: Last Vital Signs Pulse 78 12/05/23 10:27 BP 140/90 H 12/05/23 10:27 Pulse Ox 99 12/05/23 10:27 Oxygen Delivery Method Room Air 12/05/23 10:27 BMI result Body Mass Index 34.7 Tobacco/Smoking Status: Tobacco use Status Tobacco use date assessed 12/05/23 12/05/23 10:32 Patient Tobacco Use Status Never used Tobacco 12/05/23 10:32 e-Cigarette/Vaping Use Never Used 12/05/23 10:32 PHQ-9: PHQ-9 Score PHQ-9: Total score 0 12/05/23 10:32 Depression Screening Interpretation: Negative Thrive Assessment: Date of Thrive Assessment Date Thrive assessed 12/05/23 12/05/23 10:32 Currently or been in a relationship where the following occur: No concerns reported Const General: alert; No acute distress Eyes Conjunctivae: conjunctivae normal Resp Auscultation: clear to auscultation bilaterally Cardio Rate: regular rate Rhythm: regular rhythm GI Inspection: Yes normal to inspection Extrem General: Yes normal to inspection and No edema Assessment and Plan Assessment & Plan (1) 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 Mass has been decreasing in size (2) Hypertension: Code(s): I10 - Essential (primary) hypertension Qualifiers: Hypertension type: essential hypertension Qualified Code(s): I10 - Essential (primary) hypertension Plan: Continue with blood pressure medication. Decrease salt intake and exercise on lisinopril hydrochlorothiazide (3) Obesity (BMI 30-39.9): Code(s): E66.9 - Obesity, unspecified Plan: Diet and exercise Medications: New Zepbound (tirzepatide (weight loss)) 10 mg (0.5 mL) subcut QWEEK 30 days 2 mL 3RF NS E66.9 - Obesity, unspecified Changed From lisinopril-hydrochlorothiazide 10-12.5 mg 1 tab PO DAILY 30 tabs 4RF I10 - Essential (primary) hypertension To lisinopril-hydrochlorothiazide 10-12.5 mg 1 tab PO BID 60 tabs 4RF I10 - Essential (primary) hypertension Discontinued tirzepatide Discontinued Reason: Doctor's Order 7.5 mg (0.5 mL) subcut QWEEK 4 weeks 2 mL 0RF E66.9 - Obesity, unspecified Coding Level of Care Code Est Pt Level 4 (13225) Diagnoses Malignant neoplasm of right kidney C64.1 Laterality: right Essential hypertension I10 Hypertension type: essential hypertension Obesity (BMI 30-39.9) E66.9 Additional Codes LUC-7 Assessment Billing - LUC-7 Assessment Tool: LUC-7 Assessment [id number] ([id number])
== END 2023-12-05 11:13 | disposition home or self-care (01) ==
PROVIDERS: PCP Internal Medicine; Visit Provider Internal Medicine
DX: C64.1 Malignant neoplasm of right kidney, except renal pelvis (principal); I10 Essential (primary) hypertension; E66.9 Obesity, unspecified; Z68.34 Body mass index [BMI] 34.0-34.9, adult
CPT/HCPCS: 99214

== ENCOUNTER 2024-03-09 07:50 | Outpatient (AMB) | payer BC, SELFPAY ==
[2024-03-09 08:02] VITALS: BP 144/82; PULSE 92; O2SAT 97; BMI 32.9
--- NOTE | 2024-03-09 08:02 | A.OFFPC_ITS ---
Vital Signs 03/09/24 08:02 Height 5 ft 10 in Weight 229 lb BMI 32.9 BP 144/82 H Blood Pressure Location Lt brachial Position Sitting Pulse 92 Pulse Source Pulse Oximeter Pulse Oximetry (%) 97 Oxygen Delivery Method Room Air Intake Visit Reasons: obesity, HTN Allergies Penicillins [PENICILLINS] Allergy (Severe, Verified 03/09/24 08:07) ANAPHYLAXIS strawberry Allergy (Severe, Verified 03/09/24 08:07) swelling penicillin V Allergy (Unknown, Verified 03/09/24 08:07) anaphylaxis Medication List - Last Reconciled 03/09/24 by Shweta Odell PA-C amlodipine 5 mg PO DAILY fluticasone propionate 50 mcg/actuation 1 spray intranasal DAILY lisinopril-hydrochlorothiazide 10-12.5 mg 1 tab PO DAILY Zepbound (tirzepatide (weight loss)) 10 mg (0.5 mL) subcut QWEEK 30 days NS Tobacco use date assessed: 12/05/23 Dental Screening Dental Screen Date: 12/05/23 HPI obesity, HTN HPI Details 48-year-old obese male with a history of 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 Denies any leg swelling. Does mentioned he has lost increased weight since September but does continue to have very mild shortness of breath with very strenuous exercise. Denies any chest pain with exercise. [facility] Medical History Hypertension Diverticulitis Renal cancer Fatty liver Cholelithiasis Obesity (BMI 30-39.9) Surgical History History of excision of lesion Family History Father Liver cancer Hepatitis C Past heart attack Mother No problems noted. Paternal Grandmother Mouth cancer Sister Substance abuse Social History Housing: House Alcohol intake: current Comment: once a month 1 drink Patient Tobacco Use Status: Never used Tobacco e-Cigarette/Vaping Use: Never Used Second Hand Smoke Exposure: No service: No Current occupational status: employed Current occupational exposures/hazards: No Cognitive needs: No Hearing needs: No Vision needs: No Questionnaire Thrive Questionnaire Date Thrive assessed: 12/05/23 AUDIT C Alcohol Use Questionnaire (AUDIT-C) 2. How many drinks containing alcohol do you have on a typical day when you are drinking?: 1 or 2 3. How often do you have six or more drinks on one occasion?: Never Total Score: 0 LUC-7 AMB Questionnaire LUC-7 Date LUC - 7 assessed: 12/05/23 Source: Developed by Drs. Frandy Salmon, Rosalia Vargas, José Vanegas and colleagues, with an educational edwin from [employer]. Review of Systems Const Denies body aches, Denies chills, Denies fever(s), Denies headache(s) and Denies poor appetite Eyes Reports no additional complaints ENT Denies dizziness and Denies headache(s) Card Denies chest pain, Denies syncope, Denies edema, Denies irregular heart rhythm, Denies lightheadedness and Denies dyspnea Resp Denies cough and Denies dyspnea GI Denies nausea and Denies vomiting Reports no additional complaints Musc Reports no additional complaints and Denies abnormal gait Skin/Breast Reports system reviewed and no additional complaints, except as documented Neuro Denies abnormal gait, Denies dizziness, Denies syncope and Denies headache(s) Psych Reports no additional complaints Physical exam (Primary Care) Vital Signs: Oxygen Delivery Method Room Air 03/09/24 08:02 BMI result Body Mass Index 32.9 Tobacco/Smoking Status: Tobacco use Status Tobacco use date assessed 12/05/23 12/05/23 10:32 Patient Tobacco Use Status Never used Tobacco 12/05/23 10:32 e-Cigarette/Vaping Use Never Used 12/05/23 10:32 Thrive Assessment: Date of Thrive Assessment Date Thrive assessed 12/05/23 12/05/23 10:32 Const General: cooperative, healthy appearing, comfortable and no acute distress Orientation/consciousness: patient oriented x3 HENMT Head: Yes normocephalic Ears: hearing grossly normal bilaterally General nose exam: Normal external nose present Eyes General: appearance normal, both eyes and all related structures Conjunctivae: conjunctivae normal Neck Neck: Yes full ROM and Yes no lymphadenopathy Resp Effort & Inspection: normal respiratory effort Auscultation: clear to auscultation bilaterally, no crackles, no rales, no rhonchi and no wheezes Cardio Rate: regular rate Rhythm: regular rhythm Skin General skin exam: no rashes or lesions noted Neuro General: patient oriented x3 Gait exam (Neuro): Normal gait present Extrem General: Yes normal to inspection, Yes full ROM and No edema Psych Affect: normal affect Attitude: cooperative Insight: Good insight present (Psych) Judgement: Good judgement present (Psych) Coding Level of Care Code Est Pt Level 3 (91480) Diagnoses Essential hypertension I10 Hypertension type: essential hypertension Malignant neoplasm of right kidney C64.1 Laterality: right Obesity (BMI 30-39.9) E66.9 Assessment & Plan Assessment & Plan (1) Hypertension: Code(s): I10 - Essential (primary) hypertension Category: Medical Qualifiers: Hypertension type: essential hypertension Qualified Code(s): I10 - Essential (primary) hypertension Plan: Continue on current blood pressure medication. Avoid salt intake and encourage healthy diet and regular exercise. We will increase amlodipine to 10 mg and follow up in 6 weeks Advised patient if he continues to have shortness of breath with exercise to reach out to the office (2) 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, 07/2023 Code(s): C64.9 - Malignant neoplasm of unspecified kidney, except renal pelvis Category: Medical Qualifiers: Laterality: right Qualified Code(s): C64.1 - Malignant neoplasm of right kidney, except renal pelvis Plan: Continue to follow with Dr. Oro. (3) Obesity (BMI 30-39.9): Code(s): E66.9 - Obesity, unspecified Category: Medical Plan: Healthy diet and regular exercise is encouraged. Plan This note was constructed using voice recognition software. While every effort has been made to ensure accuracy and hard candy batch mixer, still areas may have been in cluded sometimes these areas may affect the content or meeting of the given symptoms. Total time spent caring for the patient today was 20 minutes. This includes time spent before the visit reviewing the chart, time spent during the visit, and time spent after the visit and documentation. Medications: New amlodipine 10 mg PO DAILY 30 tabs 2RF Discontinued amlodipine Discontinued Reason: Patient no longer taking 5 mg PO DAILY 90 tabs 2RF
== END 2024-03-09 08:24 | disposition home or self-care (01) ==
PROVIDERS: PCP Internal Medicine
DX: I10 Essential (primary) hypertension (principal); C64.1 Malignant neoplasm of right kidney, except renal pelvis; E66.9 Obesity, unspecified; Z68.32 Body mass index [BMI] 32.0-32.9, adult

== ENCOUNTER → 2024-03-09 07:50 | Outpatient (BNVA) | payer BC, SELFPAY | PROVIDERS: PCP Internal Medicine ==

== ENCOUNTER 2024-04-20 08:15 | Outpatient (AMB) | payer BC, SELFPAY ==
[2024-04-20 08:24] VITALS: BP 118/80; PULSE 81; O2SAT 98; BMI 32.5
--- NOTE | 2024-04-20 08:24 | A.OFFPC_ITS ---
Vital Signs 04/20/24 08:24 Height 5 ft 10 in Weight 226 lb 4 oz BMI 32.5 BP 118/80 Blood Pressure Location Lt brachial Position Sitting Pulse 81 Pulse Source Pulse Oximeter Pulse Oximetry (%) 98 Oxygen Delivery Method Room Air Intake Visit Reasons: f/u HTN Air Conditioning Specialist Required: No Accompanied by: Self / Same As Patient Allergies Penicillins [PENICILLINS] Allergy (Severe, Verified 04/20/24 08:24) ANAPHYLAXIS strawberry Allergy (Severe, Verified 04/20/24 08:24) swelling penicillin V Allergy (Unknown, Verified 04/20/24 08:24) anaphylaxis Tobacco use date assessed: 04/20/24 Dental Screening Dental Screen Date: 04/20/24 Did you have a dental visit in the last 12 months?: No Did you have a dental problem in the last 6 months where you did not have access to dental care?: No Was dental information given to patient?: Patient has dentist HPI f/u HTN HPI Details 48-year-old obese male with a history of kidney cancer 2019 clear cell right status post cryotherapy hypertension cholelithiasis last seen February 2024 coming in for follow up. At last visit amlodipine was increased to 10 mg. Patient tells us today he has been monitoring his blood pressures at home and have been in the 110-130 systolic range and 8 and 90 diastolic range. Still occ asionally having headaches which he attributes to stress. Doing well on his it band and has lost weight and denies any cravings or side effects. [facility] Medical History Hypertension Diverticulitis Renal cancer Fatty liver Cholelithiasis Obesity (BMI 30-39.9) Surgical History History of excision of lesion Family History Father Liver cancer Hepatitis C Past heart attack Mother No problems noted. Paternal Grandmother Mouth cancer Sister Substance abuse Social History Housing: House Alcohol intake: current Comment: once a month 1 drink Patient Tobacco Use Status: Never used Tobacco e-Cigarette/Vaping Use: Never Used Second Hand Smoke Exposure: No service: No Current occupational status: employed Current occupational exposures/hazards: No Cognitive needs: No Hearing needs: No Vision needs: No Questionnaire PHQ-9 Over the last 2 weeks, how often have you been bothered by any of the following problems? 1. Little interest or pleasure in doing things: not at all 2. Feeling down, depressed, or hopeless: not at all 3. Trouble falling or staying asleep, or sleeping too much: not at all 4. Feeling tired or having little energy: not at all 5. Poor appetite or overeating: not at all 6. Feeling bad about yourself - or that you are a failure or have let yourself or your family down: not at all 7. Trouble concentrating on things, such as reading the newspaper or watching television: not at all 8. Moving or speaking so slowly that other people could have noticed. Or the opposite - being so fidgety or restless that you have been moving around a lot more than usual: not at all 9. Thoughts that you would be better off or of hurting yourself in some way: not at all Total score: 0 Depression Screening Interpretation: Negative Depression Screening Done: Yes Source: Developed by Drs. Frandy Salmon, Rosalia Vargas, José Vanegas and colleagues, with an educational edwin from [employer]. Thrive Questionnaire Date Thrive assessed: 04/20/24 I am a: Patient What is your living situation today?: I have a steady place to live Within the past 12 months, did the food you bought not last and you didn't have the money to get more?: Never true Within the past 12 months, did you worry whether your food would run out before you got money to buy more?: Never true Do you have trouble paying for medicines?: No Do you have trouble getting transportation to medical appointments?: No Do you have trouble paying your heating and electricity bill?: No Do you have trouble taking care of your child, family member or friend?: No Do you have trouble with day-to-day activities such as bathing, preparing meals, shopping, managing finances, etc.?: No Are you currently unemployed and looking for a job?: No Are you interested in more education?: No Please select the resources that you would like help with: None Currently or been in a relationship where the following occur: No concerns reported THRIVE Score: 0 AUDIT C Alcohol Use Questionnaire (AUDIT-C) 1. How often do you have a drink containing alcohol?: Monthly or less 2. How many drinks containing alcohol do you have on a typical day when you are drinking?: 1 or 2 3. How often do you have six or more drinks on one occasion?: Never Total Score: 1 LUC-7 AMB Questionnaire LUC-7 Date LUC - 7 assessed: 04/20/24 Feeling nervous, anxious, or on edge: 0 = Not at all Not being able to stop or control worryin = Not at all Worrying too much about different things: 0 = Not at all Trouble relaxin = Not at all Being so restless that it is hard to sit still: 0 = Not at all Becoming easily annoyed or irritable: 0 = Not at all Feeling afraid as if something awful might happen: 0 = Not at all Total LUC-7 score (0-4 normal; 5-9 mild; 10-14 moderate; 15-21 severe): 0 Source: Developed by Drs. Frandy Salmon, Rosalia Vargas, José Vanegas and colleagues, with an educational edwin from [employer]. Review of Systems Const Denies body aches, Denies chills, Denies fever(s) and Denies poor appetite Eyes Reports no additional complaints Card Denies chest pain, Denies syncope, Denies edema, Denies irregular heart rhythm, Denies lightheadedness and Denies dyspnea Resp Denies cough and Denies dyspnea GI Denies abdominal pain, Denies constipation, Denies diarrhea, Denies nausea and Denies vomiting Reports no additional complaints Musc Reports no additional complaints and Denies abnormal gait Skin/Breast Reports system reviewed and no additional complaints, except as documented Neuro Denies abnormal gait and Denies syncope Psych Reports no additional complaints Physical exam (Primary Care) Vital Signs: Last Vital Signs Pulse 81 04/20/24 08:24 BP 118/80 04/20/24 08:24 Pulse Ox 98 04/20/24 08:24 Oxygen Delivery Method Room Air 04/20/24 08:24 BMI result Body Mass Index 32.5 Tobacco/Smoking Status: Tobacco use Status Tobacco use date assessed 04/20/24 04/20/24 08:26 Patient Tobacco Use Status Never used Tobacco 04/20/24 08:26 e-Cigarette/Vaping Use Never Used 04/20/24 08:26 PHQ-9: PHQ-9 Score PHQ-9: Total score 0 04/20/24 08:52 Depression Screening Interpretation: Negative Thrive Assessment: Date of Thrive Assessment Date Thrive assessed 04/20/24 04/20/24 08:26 Currently or been in a relationship where the following occur: No concerns reported Const General: cooperative, healthy appearing, comfortable and no acute distress Orientation/consciousness: patient oriented x3 HENMT Head: Yes normocephalic Ears: hearing grossly normal bilaterally General nose exam: Normal external nose present Eyes General: appearance normal, both eyes and all related structures Conjunctivae: conjunctivae normal Neck Neck: Yes full ROM and Yes no lymphadenopathy Resp Effort & Inspection: normal respiratory effort Auscultation: clear to auscultation bilaterally, no crackles, no rales, no rhonchi and no wheezes Cardio Rate: regular rate Rhythm: regular rhythm Skin General skin exam: no rashes or lesions noted Neuro General: patient oriented x3 Gait exam (Neuro): Normal gait present Extrem General: Yes normal to inspection, Yes full ROM and No edema Psych Affect: normal affect Attitude: cooperative Insight: Good insight present (Psych) Judgement: Good judgement present (Psych) Coding Level of Care Code Est Pt Level 3 (82137) Diagnoses Essential hypertension I10 Hypertension type: essential hypertension Obesity (BMI 30-39.9) E66.9 Assessment & Plan Assessment & Plan (1) Hypertension: Code(s): I10 - Essential (primary) hypertension Category: Medical Qualifiers: Hypertension type: essential hypertension Qualified Code(s): I10 - Essential (primary) hypertension Plan: Continue on current blood pressure medication. Avoid salt intake and encourage healthy diet and regular exercise. Blood pressure well controlled on amlodipine 10 mg we will follow up at next visit. (2) Obesity (BMI 30-39.9): Code(s): E66.9 - Obesity, unspecified Category: Medical Plan: Healthy diet and regular exercise is encouraged. Doing well on Zepbound Plan Follow up at annual physical ordered for updated blood work. This note was constructed using voice recognition software. While every effort has been made to ensure accuracy and supervisor water softener service, still areas may have been included sometimes these areas may affect the content or meeting of the given symptoms. Total time spent caring for the patient today was 20 minutes. This includes time spent before the visit reviewing the chart, time spent during the visit, and time spent after the visit and documentation. Orders: Orders Comprehensive Met. Panel 5 Months I10 - Essential (primary) hypertension, Z00.00 - Encounter for general adult medical examination without abnormal findings Vitamin D 25-OH Total 5 Months Z00.00 - Encounter for general adult medical examination without abnormal findings Lipid Panel 5 Months I10 - Essential (primary) hypertension, Z00.00 - Encounter for general adult medical examination without abnormal findings Complete Blood Count Auto Diff 5 Months I10 - Essential (primary) hypertension, Z00.00 - Encounter for general adult medical examination without abnormal findings Vitamin B12 and Folate 5 Months Z00.00 - Encounter for general adult medical examination without abnormal findings TSH reflex Free T4 5 Months I10 - Essential (primary) hypertension, Z00.00 - Encounter for general adult medical examination without abnormal findings Free T4 (Free Thyroxine) 5 Months I10 - Essential (primary) hypertension, Z00.00 - Encounter for general adult medical examination without abnormal findings Hemoglobin A1c 5 Months E66.9 - Obesity, unspecified, I10 - Essential (primary) hypertension
== END 2024-04-20 09:59 | disposition home or self-care (01) ==
PROVIDERS: PCP Internal Medicine
DX: I10 Essential (primary) hypertension (principal); E66.9 Obesity, unspecified; Z68.30 Body mass index [BMI] 30.0-30.9, adult

== ENCOUNTER 2024-05-10 12:51 | Outpatient (AMB) | payer BC, SELFPAY ==
--- NOTE | 2024-05-10 13:00 | A.OFFVIS_ITS ---
Vital Signs 05/10/24 13:12 Height 5 ft 10 in Weight 221 lb 12.56 oz BMI 31.8 BP 122/78 Blood Pressure Location Rt brachial Position Sitting Pulse 92 Pulse Source Pulse Oximeter Pulse Oximetry (%) 98 Oxygen Delivery Method Room Air Intake Visit Reasons: Colonoscopy Screening Intake Note: NEW PATIENT Reason; Screening. Prior hx of renal cancer. Prior hx of colo/egd? N Concerns/Questions? Pt taking zepbound for weight loss without complication. NO GI concerns at this time. Hvac Controls Technician Required: No Allergies Penicillins [PENICILLINS] Allergy (Severe, Verified 04/20/24 08:24) ANAPHYLAXIS strawberry Allergy (Severe, Verified 04/20/24 08:24) swelling penicillin V Allergy (Unknown, Verified 04/20/24 08:24) anaphylaxis HPI HPI Colonoscopy Screening: Details: 48 year old? male with past medical history of cholelithiasis, hypertension, renal cancer is here today for pre colonoscopy screening.? Patient was sent to us by his PCP.? This is his first colonoscopy screening.? Patient denies any gastrointestinal symptoms in the past or at present.? Denies any personal or family history of gastrointestinal disease, colon polyps, or CRC.? Denies history of difficulty with sedation or anesthesia in the past.? Negative for history of sleep apnea.? Denies any history of cardiac, renal, pulmonary, or hepatic disease.?? No history of infectious? diseases like hepatitis A, B, C, HIV or tuberculosis.? Patient is not on any anticoagulation [facility] Medical History Hypertension Diverticulitis Renal cancer Fatty liver Cholelithiasis Obesity (BMI 30-39.9) Surgical History History of excision of lesion Family History Father Liver cancer Hepatitis C Past heart attack Mother No problems noted. Paternal Grandmother Mouth cancer Sister Substance abuse Social History Housing: House Alcohol intake: current Comment: once a month 1 drink Patient Tobacco Use Status: Never used Tobacco e-Cigarette/Vaping Use: Never Used Second Hand Smoke Exposure: No service: No Current occupational status: employed Current occupational exposures/hazards: No Cognitive needs: No Hearing needs: No Vision needs: No Review of Systems Const Denies weight gain and Denies weight loss ENT Reports no additional complaints, Denies dysphagia and Denies odynophagia Card Reports no additional complaints Resp Reports no additional complaints GI Denies abdominal pain, Denies belching, Denies melena, Denies bloating, Denies change in bowel habits, Denies dysphagia, Denies excessive flatus, Denies dyspepsia, Denies heartburn, Denies diarrhea, Denies loose stools, Denies nausea, Denies odynophagia and Denies vomiting Reports no additional complaints Musc Reports no additional complaints Neuro Reports no additional complaints Psych Reports no additional complaints Endo Reports no additional complaints Physical Exam Vital Signs: Last Vital Signs Pulse 92 05/10/24 13:12 BP 122/78 05/10/24 13:12 Pulse Ox 98 05/10/24 13:12 Oxygen Delivery Method Room Air 05/10/24 13:12 BMI result Body Mass Index 31.8 Const General: healthy appearing, no acute distress and well developed Nutritional Appearance: well nourished Orientation/consciousness: patient oriented x3 Resp Effort & Inspection: normal respiratory effort, able to speak in complete sentences, no tracheal deviation and symmetric chest movement Auscultation: clear to auscultation bilaterally Cardio Rate: regular rate GI Inspection: Yes normal to inspection and No distended Palpation (GI): Soft to palpation, not firm, nontender and No hepatosplenomegaly present Auscultation: normal bowel sounds General: Yes no CVA tenderness Back/Spine/Pelvis Back: no CVA tenderness Skin General skin exam: elasticity normal, turgor normal and dry skin Neuro General: patient oriented x3 Psych Appearance: grossly normal Mental Status: mental status grossly normal Assessment & Plan Assessment & Plan (1) Colon cancer screening: Code(s): Z12.11 - Encounter for screening for malignant neoplasm of colon Category: Medical Plan Patient denies any GI, cardiac or respiratory symptoms.? Denies any issues with anesthesia in the past.? Denies any history of sleep apnea.? No history infectious diseases in the past or present.? Not on any anticoagulation therapy.? No family or personal history of colon cancer or polyps.? Patient denies melena, hematochezia, unintentional weight loss or ribbon like stools.? Discussed at length the pre-procedure,? prep, diet & medications as well as what to expect prior, during and after the procedure.?? Stressed the importance of good bowel prep.? Recommended the use of Vaseline or Calmoseptine OTC & baby wipes with bowel movements to promote comfort.? ?Patient verbalizes understanding and agrees to plan of care.? He was given the opportunity to ask questions and all questions answered.? We will see him after the procedure.? Medications: New polyethylene glycol 3350 (Miralax) As directed by gastroenterology department at [facility] 238 grams PO ONCE 238 grams 0RF Z12.11 - Encounter for screening for malignant neoplasm of colon bisacodyl (Dulcolax (bisacodyl)) take 4 tabs at noon the day before your colonoscopy 20 mg (4 x 5 mg) PO ONCE 1 day 4 tabs 0RF Z12.11 - Encounter for screening for malignant neoplasm of colon Coding Level of Care Code New Pt Level 3 (98521) Diagnoses Colon cancer screening Z12.11 Time Spent (min) 40 Comment 30 minutes spent with patient and additional 10 minutes spent reviewing his records
[2024-05-10 13:12] VITALS: BP 122/78; PULSE 92; O2SAT 98; BMI 31.8
== END 2024-05-11 10:34 | disposition home or self-care (01) ==
PROVIDERS: PCP Internal Medicine; Visit Provider Nurse Practitioner Family
DX: Z01.818 Encounter for other preprocedural examination (principal); Z12.11 Encounter for screening for malignant neoplasm of colon
CPT/HCPCS: S0285

== ENCOUNTER → 2024-05-10 12:51 | Outpatient (BNVA) | payer BC, SELFPAY | PROVIDERS: PCP Internal Medicine; Visit Provider Nurse Practitioner Family ==

== ENCOUNTER 2024-07-14 08:22 | Outpatient (REF) | payer BC, SELFPAY ==
--- NOTE | ~2024-07-14 | US_ITS ---
CLINICAL HISTORY: C64.1 - Malignant neoplasm of right kidney, except renal pelvis Renal ultrasound Comparison: US/IL/SR - US RENAL BI - 07/16/23 14:26 EDT US/SR - US RENAL BI - 12/27/22 08:30 EDT US/SR - US RENAL BI - 12/04/21 08:36 EDT Findings: The kidneys are normal in echotexture bilaterally. No hydronephrosis. The right kidney is normal in size, measuring 11.5cm in length. Hypoechoic mass in the midportion measuring 1.5 x 1.5 x 2.0 cm, previously measuring 1.8 x 2.0 x 1.7 cm. Reported history of cryoablation. The left kidney is normal in size, measuring 12.3cm in length. Impression: Hypoechoic mass in the midportion of the right kidney measuring 2.0 cm, similar to the prior study. This document has been electronically signed by: Arti Zambrano MD on 07/14/2024 16:50:56
== END 2024-07-14 08:23 | disposition home or self-care (01) ==
LOC: HO.HMGCX 08:22
PROVIDERS: PCP Internal Medicine; Visit Provider Urology
DX: C64.1 Malignant neoplasm of right kidney, except renal pelvis (principal)
CPT/HCPCS: 76775

== ENCOUNTER → 2024-07-14 08:25 | Outpatient (BNV) | payer BC, SELFPAY | PROVIDERS: PCP Internal Medicine; Visit Provider Radiology Diagnostic Radiology | DX: N28.89 Other specified disorders of kidney and ureter (principal) | CPT/HCPCS: 76775 ==

== ENCOUNTER 2024-07-20 11:15 | Outpatient (AMB) | payer BC, SELFPAY ==
--- NOTE | 2024-07-20 11:37 | A.OFFVIS_ITS ---
Intake Visit Reasons: 1y/US(US?) Intake Note: Patient is Present for 1Y Follow Up/US Urology Medication: none Antibiotic Allergies: Penicillins Blood Thinners: none Glaze Sprayer Required: No Allergies Penicillins [PENICILLINS] Allergy (Severe, Verified 07/20/24 11:38) ANAPHYLAXIS strawberry Allergy (Severe, Verified 07/20/24 11:38) swelling penicillin V Allergy (Unknown, Verified 07/20/24 11:38) anaphylaxis HPI Comments Details: ?José VILLAGRAN is a very pleasant male. He is a patient of Dr. Mcdonough. He is seen for the following urologic conditions. 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 Renal carcinoma cryotherapy October 2018 Here for follow-up renal cell carcinoma ? They present for further of renal cell cancer ? The renal mass was diagnosed?incidentally, during evaluation for, GI symptoms.? Imaging included?08/30 , a renal ultrasound, showing a solid mass, 2-3.0 cm in size, on the right , a CT (computed tomography) scan of the abdomen/pelvis - 2.5cm mass right lower pole - no enhancement studies - 09/[address] (computed tomography) scan of the abdomen/pelvis - with contrast - 2.8cm right renal lesion anterior - 04/[address] (computed tomography) scan of the abdomen/pelvis, cryotherapy effect, 10/01 KUB normal, 04/02 CT scan cryotherapy with effect maximum size 2 cm (18 month) - 11/01 renal ultrasound 2 cm right dense lesion, 05/05 renal ultrasound 2 cm right dense lesion with question of small stone on left, 12/03 renal ultrasound 2 cm right dense lesion - 07/04 CT scarring at right kidney - 08/05 US Right renal mid pole 2.0 cm heterogeneous, hypoechoic mass, previously measured 2.3 cm on 12/30/2022, and 2.0 cm on 11/14/2020. CT scan of June 12, 2022 demonstrated mass measuring 2.3 x 1.0 x 1.6 cm, decreased in size. - ? Prior treatment(s) included?10/30 , cryotherapy ? Staging of initial cancer?10/30 Renal Biopsy, T1a ? 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 Recent labs include?10/30 , a creatinine 1.2 - 03/02 Cr 1.01, 12.20 Cr 1.02, 05/06 Cr 1.2 ? Follow up imaging includes?03/02 Cystic change, no enhancement, good treatment effect.? [facility] Medical History Hypertension Diverticulitis Renal cancer Fatty liver Cholelithiasis Obesity (BMI 30-39.9) Surgical History History of excision of lesion Family History Father Liver cancer Hepatitis C Past heart attack Mother No problems noted. Paternal Grandmother Mouth cancer Sister Substance abuse Social History Housing: House Alcohol intake: current Comment: once a month 1 drink Patient Tobacco Use Status: Never used Tobacco e-Cigarette/Vaping Use: Never Used Second Hand Smoke Exposure: No service: No Current occupational status: employed Current occupational exposures/hazards: No Cognitive needs: No Hearing needs: No Vision needs: No Review of Systems Const Denies chills and Denies fever(s) Card Reports no additional complaints and Denies syncope Resp Denies cough GI Denies abdominal pain and Denies heartburn Reports as per HPI and Denies change in libido Neuro Denies syncope Psych Denies change in libido Endo Denies change in libido Physical Exam Const General: cooperative, healthy appearing, comfortable and no acute distress Orientation/consciousness: patient oriented x3 HEENT Face and sinus: Yes normal facial exam Mouth: moist mucous membranes Neck Neck: Yes normal visual inspection, Yes full ROM and Yes trachea midline Chest Chest palpation & inspection: normal inspection of the chest Resp Effort & Inspection: normal respiratory effort, able to speak in complete sentences and no respiratory distress GI Inspection: Yes normal to inspection Back/Spine/Pelvis Cervical Spine: normal cervical lordosis Thoracic/Lumbar Spine: thoracic and lumbar spine normal to inspection Skin General skin exam: no rashes or lesions noted Neuro General: patient oriented x3, gait normal, tone normal and moves all extremities Extrem General: Yes normal to inspection and Yes capillary refill normal Assessment & Plan Assessment & Plan (1) 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, 07/2023 Code(s): C64.9 - Malignant neoplasm of unspecified kidney, except renal pelvis Category: Medical Qualifiers: Laterality: right Qualified Code(s): C64.1 - Malignant neoplasm of right kidney, except renal pelvis Plan Yearly follow-up Patient Instructions: This note is constructed using voice recognition software. While every effort has been made to ensure accuracy waste hand errors may have been included. Imaging studies, laboratory and physical exam results were discussed and reviewed in detail. No major barriers to patient understanding were identified. An opportunity to ask questions regarding the treatment plan was provided. All questions were answered. The patient expressed understanding and agreement with the above treatment plan. The patient is aware they should contact our office by phone for worsening of their current condition or the appearance of new urologic symptoms. Compliance is encouraged with any medications and followup testing that is ordered. It is a privilege to participate in the urologic care of your patient. If you have any questions or concerns regarding treatment for the above conditions, or other urologic issues, please do not hesitate to contact me. The office telephone contact is [phone]. Sincerely, Dr Andrei Oro MD, [facility] - Urology Compassionate Specialist Care for the Genitourinary System Coding Level of Care Code Est Pt Level 3 (94448) Complex EM visit Add On G2211 Diagnoses Malignant neoplasm of right kidney C64.1 Laterality: right
== END 2024-07-20 12:46 | disposition home or self-care (01) ==
PROVIDERS: PCP Internal Medicine; Visit Provider Urology
DX: C64.1 Malignant neoplasm of right kidney, except renal pelvis (principal)
CPT/HCPCS: 99213

== ENCOUNTER → 2024-07-20 11:15 | Outpatient (BNVA) | payer BC, SELFPAY | PROVIDERS: PCP Internal Medicine; Visit Provider Urology ==

== ENCOUNTER 2024-09-24 08:42 | Outpatient (AMB) | payer BC, SELFPAY ==
--- NOTE | 2024-09-24 08:50 | MHC.PC.OV ---
Vital Signs 09/24/24 08:52 Height 5 ft 10 in Weight 215 lb 2 oz BMI 30.9 BP 130/62 Blood Pressure Location Lt brachial Position Sitting Pulse 71 Pulse Source Pulse Oximeter Temp 97.3 F Temp Source Temporal Artery Scan Pulse Oximetry (%) 98 Oxygen Delivery Method Room Air Intake Visit Reasons: Annual Exam Intake Note: Patient is here today for a physical. Apparel Rental Clerk Required: No Mail Order Biller: Not Required per policy Accompanied by: Self / Same As Patient Allergies Penicillins [PENICILLINS] Allergy (Severe, Verified 09/24/24 08:52) ANAPHYLAXIS strawberry Allergy (Severe, Verified 09/24/24 08:52) swelling penicillin V Allergy (Unknown, Verified 09/24/24 08:52) anaphylaxis Medication List - Last Reconciled 09/24/24 by James Mcdonough MD amlodipine 10 mg PO DAILY bisacodyl (Dulcolax (bisacodyl)) 20 mg (4 x 5 mg) PO ONCE 1 day cetirizine (Zyrtec) 10 mg PO DAILY PRN fluticasone propionate 50 mcg/actuation 1 spray intranasal DAILY lisinopril-hydrochlorothiazide 10-12.5 mg 1 tab PO DAILY polyethylene glycol 3350 (Miralax) 238 grams PO ONCE tadalafil 5 mg PO DAILY 30 days Zepbound (tirzepatide (weight loss)) 10 mg (0.5 mL) subcut QWEEK 30 days NS Tobacco use date assessed: 09/24/24 Dental Screening Dental Screen Date: 04/20/24 [facility] Medical History Hypertension Diverticulitis Renal cancer Fatty liver Cholelithiasis Obesity (BMI 30-39.9) Surgical History History of excision of lesion Family History Father Liver cancer Hepatitis C Past heart attack Mother No problems noted. Paternal Grandmother Mouth cancer Sister Substance abuse Social History (Updated 09/24/24 @ 09:39 by James Mcdonough MD) Housing: House Alcohol intake: current Comment: once a month 1 drink= patient has stopped Patient Tobacco Use Status: Never used Tobacco e-Cigarette/Vaping Use: Never Used Second Hand Smoke Exposure: No service: No Current occupational status: employed Current occupational exposures/hazards: No Cognitive needs: No Hearing needs: No Vision needs: No Questionnaire PHQ-9 Over the last 2 weeks, how often have you been bothered by any of the following problems? 1. Little interest or pleasure in doing things: not at all 2. Feeling down, depressed, or hopeless: several days 3. Trouble falling or staying asleep, or sleeping too much: not at all 4. Feeling tired or having little energy: several days 5. Poor appetite or overeating: not at all 6. Feeling bad about yourself - or that you are a failure or have let yourself or your family down: not at all 7. Trouble concentrating on things, such as reading the newspaper or watching television: several days 8. Moving or speaking so slowly that other people could have noticed. Or the opposite - being so fidgety or restless that you have been moving around a lot more than usual: not at all 9. Thoughts that you would be better off or of hurting yourself in some way: not at all Total score: 3 Depression Screening Interpretation: Positive Depression Screening Done: Yes Source: Developed by Drs. Frandy Salmon, Rosalia Vargas, José Vanegas and colleagues, with an educational edwin from [employer]. Thrive Questionnaire Date Thrive assessed: 09/17/24 I am a: Patient What is your living situation today?: I have a steady place to live Within the past 12 months, did the food you bought not last and you didn't have the money to get more?: Never true Within the past 12 months, did you worry whether your food would run out before you got money to buy more?: Never true Do you have trouble paying for medicines?: No Do you have trouble getting transportation to medical appointments?: No Do you have trouble paying your heating and electricity bill?: No Do you have trouble taking care of your child, family member or friend?: No Do you have trouble with day-to-day activities such as bathing, preparing meals, shopping, managing finances, etc.?: No Are you currently unemployed and looking for a job?: No Are you interested in more education?: No Please select the resources that you would like help with: None Currently or been in a relationship where the following occur: No concerns reported THRIVE Score: 0 AUDIT C Alcohol Use Questionnaire (AUDIT-C) 1. How often do you have a drink containing alcohol?: Monthly or less 2. How many drinks containing alcohol do you have on a typical day when you are drinking?: 1 or 2 3. How often do you have six or more drinks on one occasion?: Never Total Score: 1 LUC-7 AMB Questionnaire LUC-7 Date LUC - 7 assessed: 09/24/24 Feeling nervous, anxious, or on edge: 1 = Several days Not being able to stop or control worryin = Several days Worrying too much about different things: 1 = Several days Trouble relaxin = Several days Being so restless that it is hard to sit still: 0 = Not at all Becoming easily annoyed or irritable: 1 = Several days Feeling afraid as if something awful might happen: 0 = Not at all Total LUC-7 score (0-4 normal; 5-9 mild; 10-14 moderate; 15-21 severe): 5 Source: Developed by Drs. Frandy Salmon, Rosalia Vargas, José Vanegas and colleagues, with an educational edwin from [employer]. Review of Systems Const Denies poor appetite and Denies weakness Eyes Denies no additional complaints ENT Reports Normal hearing present, Denies dizziness, Denies nasal congestion, Denies tinnitus and Denies sore throat Card Denies chest pain, Denies syncope, Denies rapid heart rate and Denies dyspnea Resp Denies cough and Denies dyspnea GI Denies change in stool character, Reports constipation, Denies diarrhea, Denies nausea and Denies vomiting Denies dysuria and Denies urinary frequency Neuro Reports Normal hearing present, Denies confusion, Denies dizziness, Denies syncope and Denies weakness Psych Denies confusion Physical exam (Primary Care) Vital Signs: Last Vital Signs Temp 97.3 F 09/24/24 08:52 Pulse 71 09/24/24 08:52 BP 130/62 09/24/24 08:52 Pulse Ox 98 09/24/24 08:52 Oxygen Delivery Method Room Air 09/24/24 08:52 BMI result Body Mass Index 30.9 Tobacco/Smoking Status: Tobacco use Status Tobacco use date assessed 09/24/24 09/24/24 08:57 Patient Tobacco Use Status Never used Tobacco 09/24/24 09:39 e-Cigarette/Vaping Use Never Used 09/24/24 09:39 PHQ-9: PHQ-9 Score PHQ-9: Total score 3 09/24/24 09:29 Depression Screening Interpretation: Positive Thrive Assessment: Date of Thrive Assessment Date Thrive assessed 09/17/24 09/24/24 08:57 Currently or been in a relationship where the following occur: No concerns reported Const General: No confusion Orientation/consciousness: No confusion HENMT Head: Yes normocephalic Ears: external ears normal and TM's normal bilaterally Face and sinus: Yes normal facial exam Mouth: moist mucous membranes Throat: Yes tonsils normal Eyes Conjunctivae: conjunctivae normal Pupils: Equal, round and reactive pupils present and Pupil accommodation reflex normal Direct Ophthalmoscopy: normal light reflex Neck Neck: No lymphadenopathy Thyroid: Thyroid normal Chest Chest palpation & inspection: normal inspection of the chest Resp Effort & Inspection: normal respiratory effort and no audible wheezes Auscultation: clear to auscultation bilaterally, no crackles, no wheezes and lung sounds not diminished Cardio Rate: regular rate Rhythm: regular rhythm Peripheral pulses: radial pulses present and dorsalis pedis present GI Palpation (GI): no masses Auscultation: normal bowel sounds and normoactive bowel sounds Rectal Exam - Male: Yes deferred Skin General skin exam: no rashes or lesions noted Rashes: no rashes Neuro General: No confusion Cranial nerves: Yes Equal, round and reactive pupils present and Yes Normal hearing present Cognition (Neuro): normal cognition Gait exam (Neuro): Normal gait present Motor exam (neuro): 5/5 motor strength present throughout Deep tendon reflexes (DTR's): Right brachioradialis reflex intensity grade: 2+, Left brachioradialis reflex intensity grade: 2+, Right patellar reflex intensity grade: 2+ and Left patellar reflex intensity grade: 2+ Extrem General: No edema Coding Level of Care Code Est Pt Prev Care 40-64y(12917) Diagnoses Annual physical exam Z00.00 Malignant neoplasm of right kidney C64.1 Laterality: right Obesity (BMI 30-39.9) E66.9 Essential hypertension I10 Hypertension type: essential hypertension Cholelithiasis K80.20 Assessment & Plan Assessment & Plan (1) Annual physical exam: Code(s): Z00.00 - Encounter for general adult medical examination without abnormal findings Category: Medical Plan: Patient is advised to eat healthy, keep well hydrated, keep active and have adequate sleep. (2) Renal cancer: Comment: Right Clear cell DrMir Oro October 2018 cryotherapy November 2018, 07/2023 Code(s): C64.9 - Malignant neoplasm of unspecified kidney, except renal pelvis Category: Medical Qualifiers: Laterality: right Qualified Code(s): C64.1 - Malignant neoplasm of right kidney, except renal pelvis Plan: Patient continues to follow-up with urology and under surveillance (3) Obesity (BMI 30-39.9): Code(s): E66.9 - Obesity, unspecified Category: Medical Plan: Diet and exercise (4) Hypertension: Code(s): I10 - Essential (primary) hypertension Category: Medical Qualifiers: Hypertension type: essential hypertension Qualified Code(s): I10 - Essential (primary) hypertension Plan: Continue with blood pressure medication. Decrease salt intake and exercise on amlodipine 10 mg once a day lisinopril hydrochlorothiazide 10/12.5 mg once a day (5) Cholelithiasis: Comment: 05/03/2022 Code(s): K80.20 - Calculus of gallbladder without cholecystitis without obstruction Category: Medical Plan: Low-fat diet and exercise Plan History of Present Illness The patient is a 48-year-old male presenting for a wellness visit and management of chronic conditions. The patient has a history of kidney cancer, with a renal ultrasound in July showing a hypoechoic mass in the mid portion of the right kidney, similar to a prior study. He continues to follow up with urology and is under surveillance. The patient reports a 6-pound weight loss and is currently managing obesity. He is on a low-fat diet and engages in regular exercise, including walking, biking, and yard work. The patient has a history of cholelithiasis and reports episodes of indigestion, which he associates with stress. He has not taken any medication for these symptoms but is advised to use [id number] antacids if symptoms worsen. The patient has elevated liver function tests noted in past blood work. He is scheduled for further blood work to monitor liver function and other parameters, including kidney function and thyroid levels. The patient is diagnosed with essential hypertension and is currently on amlodipine and lisinopril-hydrochlorothiazide. He is advised to maintain a low-fat diet and regular exercise to manage his blood pressure. The patient has allergic rhinitis and takes Zyrtec daily, which may contribute to his fatigue. He is advised to trial Nancy for one to two weeks to assess if it alleviates his fatigue. Health Maintenance - Colonoscopy planned for preventative care - Blood work scheduled to monitor liver function, kidney function, thyroid levels, and testosterone - Advised to maintain a low-fat diet and regular exercise - Advised to trial Nancy for allergic rhinitis management Social History - Exercise: Engages in walking, biking, and yard work regularly - Substance use: Denies alcohol, tobacco, and recreational drug use - Nutrition: Follows a low-fat diet and treats himself with diet soda occasionally Review of Systems - General: Reports fatigue, denies fever or weight gain - Gastrointestinal: Reports indigestion, denies nausea or vomiting - Cardiovascular: Denies chest pain or palpitations - Respiratory: Denies dyspnea or cough - Neurological: Denies dizziness or syncope - Genitourinary: Reports nocturia once per night, denies dysuria Physical Exam General: Cooperative, healthy appearing, comfortable, no acute distress and well developed Orientation: Patient oriented x3 Limitations: No limitations Head: Normal to inspection Ears: Hearing grossly normal bilaterally Nose: Normal external nose present Face and sinus: Normal facial exam Eyes: Appearance normal, both eyes and all related structures Neck: Normal visual inspection and Yes full ROM Respiratory: Normal respiratory effort and able to speak in complete sentences. Clear to auscultation bilaterally Cardiovascular: Regular rate and rhythm. Normal S1 and S2 GI: Normal to inspection. Soft to palpation and nontender Skin: No rashes or lesions noted Neuro: Patient oriented x3 Extremities: Normal to inspection Results - Renal ultrasound: Hypoechoic mass in the mid portion of the right kidney, similar to prior study - Blood work: Elevated liver function tests Plan The patient will continue to follow up with urology for surveillance of the kidney mass, with a renal ultrasound showing a hypoechoic mass in the mid portion of the right kidney. He is advised to maintain a low-fat diet and regular exercise to manage obesity and hypertension, with current medications including amlodipine and lisinopril-hydrochlorothiazide. For indigestion, the patient is advised to use [id number] antacids if symptoms worsen, and to monitor for any changes in symptoms. Blood work is scheduled to monitor liver function, kidney function, thyroid levels, and testosterone, with elevated liver function tests noted previously. The patient is advised to trial Nancy for allergic rhinitis management to assess if it alleviates fatigue, which may be associated with Zyrtec use. Preventative care includes a planned colonoscopy and maintaining current vaccinations. Patient was informed and verbally consented to the use of an ambient scribe for clinic note documentation during this visit. Discussion Notes I discussed with the patient the importance of continuing follow-up with urology for the kidney mass and maintaining a low-fat diet and regular exercise to manage obesity and hypertension. We reviewed the use of [id number] antacids for indigestion and the need for scheduled blood work to monitor liver function and other parameters. I advised the patient to trial Nancy for allergic rhinitis management and emphasized the importance of preventative care, including a planned colonoscopy and keeping vaccinations up to date. Patient Instructions - Continue follow-up with urology for kidney mass surveillance. - Maintain a low-fat diet and regular exercise to manage weight and blood pressure. - Use [id number] antacids if indigestion worsens. - Complete scheduled blood work to monitor liver function and other parameters. - Trial Nancy for allergic rhinitis management for one to two weeks. - Attend planned colonoscopy and keep vaccinations up to date. Medications: Changed From Zepbound (tirzepatide (weight loss)) 10 mg (0.4 mL) subcut QWEEK 30 days 2 mL 3RF NS E66.9 - Obesity, unspecified To Zepbound (tirzepatide (weight loss)) 12.5 mg (0.5 mL) subcut QWEEK 30 days 2.5 mL 3RF NS E66.9 - Obesity, unspecified From Zepbound (tirzepatide (weight loss)) 10 mg (0.5 mL) subcut QWEEK 30 days 2 mL 3RF NS E66.9 - Obesity, unspecified To Zepbound (tirzepatide (weight loss)) 10 mg (0.4 mL) subcut QWEEK 30 days 2 mL 3RF NS E66.9 - Obesity, unspecified Refilled Zepbound (tirzepatide (weight loss)) 12.5 mg (0.5 mL) subcut QWEEK 2.5 mL 3RF 30 days NS E66.9 - Obesity, unspecified
[2024-09-24 08:52] VITALS: BP 130/62; PULSE 71; TEMP 36.3; O2SAT 98; BMI 30.9
== END 2024-09-24 09:51 | disposition home or self-care (01) ==
LOC: HO.HMCH 08:43
PROVIDERS: PCP Internal Medicine; Visit Provider Internal Medicine
DX: Z00.00 Encounter for general adult medical examination without abnormal findings (principal); C64.1 Malignant neoplasm of right kidney, except renal pelvis; E66.9 Obesity, unspecified; Z68.30 Body mass index [BMI] 30.0-30.9, adult; I10 Essential (primary) hypertension; K80.20 Calculus of gallbladder without cholecystitis without obstruction

== ENCOUNTER → 2024-09-24 08:42 | Outpatient (BNVA) | payer BC, SELFPAY | PROVIDERS: PCP Internal Medicine; Visit Provider Internal Medicine ==

== ENCOUNTER 2024-10-06 08:05 | Outpatient (REF) | payer BC, SELFPAY ==
[2024-10-06 10:11] LABS: MANUAL DIFF FLAG NO
[2024-10-06 10:29] LABS: Basophils Absolute Auto 0.1 X10*3/uL (0.0-0.2); Basophils Percent Auto 0.9 % (0-2); Eosinophils Absolute Auto 0.2 X10*3/uL (0.0-0.4); Eosinophils Percent Auto 3.1 % (0-4); Hematocrit 39.6 % (42.0-52.0); Hemoglobin 14.2 g/dl (14.0-18.0); Imm Gran Abs Auto 0.01 X10*3/uL (0.00-0.03); Imm Gran Pct Auto 0.2 % (0.0-0.4); Lymphocytes Absolute Auto 1.8 X10*3/uL (1.2-4.9); Lymphocytes Percent Auto 27.8 % (20-40); Mean Corpuscular HGB Conc 35.9 g/dl (31.0-36.0); Mean Corpuscular Hemoglobin 29.9 pg (27.0-33.0); Mean Corpuscular Volume 83.4 fL (80.0-98.0); Mean Platelet Volume 9.5 fL (9.4-12.4); Monocytes Absolute Auto 0.5 X10*3/uL (0.1-1.2); Monocytes Percent Auto 7.6 % (2-11); Neutrophils Absolute Auto 3.9 x10*3/uL (2.0-8.3); Neutrophils Percent Auto 60.4 % (45-73); Platelet Count 261 X10*3/uL (160-400); Red Blood Count 4.75 X10*6/uL (4.60-5.80); Red Cell Distribution Width 12.4 % (11.0-16.0); White Blood Count 6.5 X10*3/uL (4.8-10.8)
[2024-10-06 10:39] LABS: Estimated Average Glucose 88 mg/dL; Hemoglobin A1c % 4.7 % (<6.0)
[2024-10-06 11:01] LABS: Alanine Aminotransferase 22 U/L (0-40); Albumin Level 4.3 g/dL (3.5-5.0); Alkaline Phosphatase 56 U/L (39-117); Anion Gap 13 (12-20); Aspartate Amino Transferase 23 U/L (5-37); Bilirubin Total 0.5 mg/dL (0.0-1.0); Blood Urea Nitrogen 17 mg/dL (9-16); Calcium 9.2 mg/dL (8.4-10.2); Carbon Dioxide 25 mmol/L (22-29); Chloride 109 mmol/L (96-108); Cholesterol 127 mg/dL (<200); Estimated Glomerular Filt Rate > 60; Glucose Random 89 mg/dL (60-115); HDL Cholesterol 33 mg/dL (>40); LDL Cholesterol Calculated 79 mg/dL (<100); Potassium 3.6 mmol/L (3.3-5.1); Sodium 143 mmol/L (135-145); Total Protein 6.8 g/dL (6.5-8.0); Triglycerides 78 mg/dL (<150)
[2024-10-06 11:04] LABS: Free T4 (Free Thyroxine) 1.18 ng/dL (0.71-1.85); TSH reflex Free T4 1.16 uIU/mL (0.32-4.0); Vitamin D 25-OH Total 31.9 ng/mL (>30)
[2024-10-06 11:19] LABS: Folate 4.4 ng/mL (> or = 4.0); Vitamin B12 318 pg/mL (200-900)
[2024-10-09 17:44] LABS: Testosterone, Total 492 ng/dL (250-1100)
== END 2024-10-06 08:06 | disposition home or self-care (01) ==
LOC: HO.HMGCLDS 08:05
PROVIDERS: PCP Internal Medicine; Referring Provider Urology
DX: Z00.00 Encounter for general adult medical examination without abnormal findings (principal); C64.1 Malignant neoplasm of right kidney, except renal pelvis; M62.50 Muscle wasting and atrophy, not elsewhere classified, unspecified site; I10 Essential (primary) hypertension; E66.9 Obesity, unspecified; Z13.1 Encounter for screening for diabetes mellitus
CPT/HCPCS: 36415; 80053; 80061; 82306; 82607; 82746; 83036; 84403; 84439; 84443; 85025

== ENCOUNTER 2024-10-19 11:10 | Outpatient (AMB) | payer BC, SELFPAY ==
--- NOTE | 2024-10-19 11:15 | A.OFFVIS_ITS ---
Intake Visit Reasons: 3m Follow up/ Testo Intake Note: Patient is Present for Follow Up imaging : 07/14/2024 Testosterone labs 10/06/24: 492 Urology Medication: Tadalafil Antibiotic Allergies: Penicillins Blood Thinners: none Android Ios Developer Required: No Accompanied by: Self / Same As Patient Allergies Penicillins (PENICILLINS) Allergy (Severe, Verified 10/19/24 11:16) ANAPHYLAXIS strawberry Allergy (Severe, Verified 10/19/24 11:16) swelling penicillin V Allergy (Unknown, Verified 10/19/24 11:16) anaphylaxis HPI Comments Details: ?José VILLAGRAN is a very pleasant male. He is a patient of Dr. Mcdonough. He is seen for the following urologic conditions. 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 Renal carcinoma cryotherapy October 2018 Here for follow-up renal cell carcinoma ? They present for further of renal cell cancer ? The renal mass was diagnosed?incidentally, during evaluation for, GI symptoms.? Imaging included?08/30 , a renal ultrasound, showing a solid mass, 2-3.0 cm in size, on the right , a CT (computed tomography) scan of the abdomen/pelvis - 2.5cm mass right lower pole - no enhancement studies - 09/[address] (computed tomography) scan of the abdomen/pelvis - with contrast - 2.8cm right renal lesion anterior - 04/[address] (computed tomography) scan of the abdomen/pelvis, cryotherapy effect, 10/01 KUB normal, 04/02 CT scan cryotherapy with effect maximum size 2 cm (18 month) - 11/01 renal ultrasound 2 cm right dense lesion, 05/05 renal ultrasound 2 cm right dense lesion with question of small stone on left, 12/03 renal ultrasound 2 cm right dense lesion - 07/04 CT scarring at right kidney - 08/05 US Right renal mid pole 2.0 cm heterogeneous, hypoechoic mass, previously measured 2.3 cm on 12/30/2022, and 2.0 cm on 11/14/2020. CT scan of June 12, 2022 demonstrated mass measuring 2.3 x 1.0 x 1.6 cm, decreased in size. - ? Prior treatment(s) included?10/30 , cryotherapy ? Staging of initial cancer?10/30 Renal Biopsy, T1a ? 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 Recent labs include?10/30 , a creatinine 1.2 - 03/02 Cr 1.01, . Cr 1.02, 05/06 Cr 1.2 ? Follow up imaging includes?03/02 Cystic change, no enhancement, good treatment effect.? [facility] Medical History Hypertension Diverticulitis Renal cancer Fatty liver Cholelithiasis Obesity (BMI 30-39.9) Surgical History History of excision of lesion Family History Father Liver cancer Hepatitis C Past heart attack Mother No problems noted. Paternal Grandmother Mouth cancer Sister Substance abuse Social History (Updated 09/24/24 @ 09:39 by James Mcdonough MD) Housing: House Alcohol intake: current Comment: once a month 1 drink= patient has stopped Patient Tobacco Use Status: Never used Tobacco e-Cigarette/Vaping Use: Never Used Second Hand Smoke Exposure: No service: No Current occupational status: employed Current occupational exposures/hazards: No Cognitive needs: No Hearing needs: No Vision needs: No Review of Systems Const Denies chills and Denies fever(s) Card Reports no additional complaints and Denies syncope Resp Denies cough GI Denies abdominal pain and Denies heartburn Reports as per HPI and Denies change in libido Neuro Denies syncope Psych Denies change in libido Endo Denies change in libido Physical Exam Const General: cooperative, healthy appearing, comfortable and no acute distress Orientation/consciousness: patient oriented x3 HEENT Face and sinus: Yes normal facial exam Mouth: moist mucous membranes Neck Neck: Yes normal visual inspection, Yes full ROM and Yes trachea midline Chest Chest palpation & inspection: normal inspection of the chest Resp Effort & Inspection: normal respiratory effort, able to speak in complete sentences and no respiratory distress GI Inspection: Yes normal to inspection Back/Spine/Pelvis Cervical Spine: normal cervical lordosis Thoracic/Lumbar Spine: thoracic and lumbar spine normal to inspection Skin General skin exam: no rashes or lesions noted Neuro General: patient oriented x3, gait normal, tone normal and moves all extremities Extrem General: Yes normal to inspection and Yes capillary refill normal Results AMB Urinalysis, Automated UA Leukoctes 0 Maria Del Rosario/uL Last Edit by Corazon Sanchez MA on 10/19/24 11:51 UA Nitrite Negative Last Edit by Corazon Sanchez RI on 10/19/24 11:51 UA Urobilinogen 3.5 mg/dL Last Edit by Corazon Sanchez MA on 10/19/24 11:51 UA Protein 0 mg/dL Last Edit by Corazon Sanchez RI on 10/19/24 11:51 UA pH 6.0 Last Edit by Corazon Sanchez RI on 10/19/24 11:51 UA Blood 0 Tyrone/uL Last Edit by Corazon Sanchez RI on 10/19/24 11:51 UA Specific [place] 1.010 Last Edit by Corazon Sanchez RI on 10/19/24 11:51 UA Ketone Negative Last Edit by Corazon Sanchez RI on 10/19/24 11:51 UA Bilirubin 0 mg/dL Last Edit by Corazon Sanchez RI on 10/19/24 11:51 UA Glucose 0 mg/dL Last Edit by Corazon Sanchez RI on 10/19/24 11:51 Results Reviewed Results Reviewed: Laboratory Last Values Urine pH (Auto) 6.0 10/19/24 11:37 Specific [place] (Auto) 1.010 10/19/24 11:37 Urine Protein (Auto) 0 mg/dL 10/19/24 11:37 Glucose (UA)(Auto) 0 mg/dL 10/19/24 11:37 Urine Ketones (Auto) Negative 10/19/24 11:37 Urine Blood (Auto) 0 Tyrone/uL 10/19/24 11:37 Urine Nitrite (Auto) Negative 10/19/24 11:37 Urine Bilirubin (Auto) 0 mg/dL 10/19/24 11:37 Urine Urobilinogen (Auto) 3.5 mg/dL 10/19/24 11:37 Leukocyte Esterase (Auto) 0 Maria Del Rosario/uL 10/19/24 11:37 Assessment & Plan Assessment & Plan (1) 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, 07/2023 Code(s): C64.9 - Malignant neoplasm of unspecified kidney, except renal pelvis Category: Medical Qualifiers: Laterality: right Qualified Code(s): C64.1 - Malignant neoplasm of right kidney, except renal pelvis (2) Obesity (BMI 30-39.9): Code(s): E66.9 - Obesity, unspecified Category: Medical Plan Follow-up 8 months testosterone and renal ultrasound Orders: Orders AMB Urinalysis Automated Today Z13.9 - Encounter for screening, unspecified Testosterone, Total 8 Months C64.1 - Malignant neoplasm of right kidney, except renal pelvis Patient Instructions: This note is constructed using voice recognition software. While every effort has been made to ensure accuracy entry level marketing assistant errors may have been included. Imaging studies, laboratory and physical exam results were discussed and reviewed in detail. No major barriers to patient understanding were identified. An opportunity to ask questions regarding the treatment plan was provided. All questions were answered. The patient expressed understanding and agreement with the above treatment plan. The patient is aware they should contact our office by phone for worsening of their current condition or the appearance of new urologic symptoms. Compliance is encouraged with any medications and followup testing that is ordered. It is a privilege to participate in the urologic care of your patient. If you have any questions or concerns regarding treatment for the above conditions, or other urologic issues, please do not hesitate to contact me. The office telephone contact is [phone]. Sincerely, Dr Andrei Oro MD, [facility] - Urology Compassionate Specialist Care for the Genitourinary System Coding Level of Care Code Est Pt Level 3 (03548) Complex EM visit Add On G2211 Diagnoses Malignant neoplasm of right kidney C64.1 Laterality: right Obesity (BMI 30-39.9) E66.9
== END 2024-10-19 12:22 | disposition home or self-care (01) ==
LOC: HO.HUSH 11:11
PROVIDERS: PCP Internal Medicine; Visit Provider Urology
DX: C64.1 Malignant neoplasm of right kidney, except renal pelvis (principal); E66.9 Obesity, unspecified; Z13.9 Encounter for screening, unspecified
CPT/HCPCS: 99213

== ENCOUNTER → 2024-10-19 11:10 | Outpatient (BNVA) | payer BC, SELFPAY | PROVIDERS: PCP Internal Medicine; Visit Provider Urology | DX: C64.1 Malignant neoplasm of right kidney, except renal pelvis (principal); R68.82 Decreased libido; E66.9 Obesity, unspecified | CPT/HCPCS: 81003 ==

== ENCOUNTER 2025-01-14 08:11 | Outpatient (AMB) | payer BC, SELFPAY ==
[2025-01-14 08:15] VITALS: BP 118/76; PULSE 77; O2SAT 99; BMI 31.4
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
== END 2025-01-14 09:59 | disposition home or self-care (01) ==
LOC: HO.HMCH 08:12
PROVIDERS: PCP Internal Medicine; Visit Provider Internal Medicine
DX: C64.1 Malignant neoplasm of right kidney, except renal pelvis (principal); E66.9 Obesity, unspecified; Z68.31 Body mass index [BMI] 31.0-31.9, adult; I10 Essential (primary) hypertension; Z12.11 Encounter for screening for malignant neoplasm of colon

== ENCOUNTER 2025-03-18 07:10 | Day surgery (SDC) | payer BC, SELFPAY ==
--- NOTE | 2025-03-15 12:56 | HO.ANESPROP2 ---
Documented by User: Tatiana Wells NP 03/15/25 12:58 HPI - Anesthesia Eval Consult details Narrative: 49 yr old male for colonoscopy H/O renal cancer in 2019: s/p chemo Anesthesia Pre-Procedure Meds Is the patient on any of the following meds?: GLP1/DPP4 PMFSH Active Problems Active Problems: All Active Problems Colon cancer screening (Acute) Cholelithiasis (Acute) Hypertension (Acute) Annual physical exam (Acute) COVID-19 (Acute) Pneumonia due to COVID-19 virus (Acute) Renal cancer (Acute) Annual physical exam (Acute) Obesity (BMI 30-39.9) (Acute) Past Medical History Medical History Hypertension Diverticulitis Renal cancer Fatty liver Cholelithiasis Obesity (BMI 30-39.9) Family History Family History Father Liver cancer Hepatitis C Past heart attack Mother No problems noted. Paternal Grandmother Mouth cancer Sister Substance abuse Surgical History Surgical History History of excision of lesion Social History Social History Housing: House Alcohol intake: current Comment: once a month 1 drink= patient has stopped Patient Tobacco Use Status: Never used Tobacco Tobacco use type: Cigarette e-Cigarette/Vaping Use: Never Used Second Hand Smoke Exposure: No Use of substances other than those prescribed or required for medical reasons: No Advance Directives: No Advance Directives Information Provided: Yes service: No Current occupational status: employed Current occupational exposures/hazards: No Cognitive needs: No Hearing needs: No Vision needs: No Meds Allergies Allergy/AdvReac Type Severity Reaction Status Date / Time Penicillins (PENICILLINS) Allergy Severe ANAPHYLAXIS Verified 01/14/25 08:15 strawberry Allergy Severe swelling Verified 01/14/25 08:15 Home Medications ?Medication ?Instructions ?Recorded ?Confirmed ?Last Taken ?Type fluticasone propionate 50 1 spray intranasal DAILY 02/21/20 03/18/25 Unknown History mcg/actuation nasal spray,suspension Documented by User: Ayde Gamino MD 03/18/25 07:40 PMFSH Past Medical History Medical History Hypertension Diverticulitis Renal cancer Fatty liver Cholelithiasis Obesity (BMI 30-39.9) Family History Family History Father Liver cancer Hepatitis C Past heart attack Mother No problems noted. Paternal Grandmother Mouth cancer Sister Substance abuse Family history of problems with anesthesia: No Surgical History Surgical History History of excision of lesion History of Problems with Anesthesia: No Social History Social History Housing: House Alcohol intake: current Comment: once a month 1 drink= patient has stopped Patient Tobacco Use Status: Never used Tobacco Tobacco use type: Cigarette e-Cigarette/Vaping Use: Never Used Second Hand Smoke Exposure: No Use of substances other than those prescribed or required for medical reasons: No Advance Directives: No Advance Directives Information Provided: Yes service: No Current occupational status: employed Current occupational exposures/hazards: No Cognitive needs: No Hearing needs: No Vision needs: No Meds Allergies Allergy/AdvReac Type Severity Reaction Status Date / Time Penicillins (PENICILLINS) Allergy Severe ANAPHYLAXIS Verified 01/14/25 08:15 strawberry Allergy Severe swelling Verified 01/14/25 08:15 Home Medications ?Medication ?Instructions ?Recorded ?Confirmed ?Last Taken ?Type fluticasone propionate 50 1 spray intranasal DAILY 02/21/20 03/18/25 Unknown History mcg/actuation nasal spray,suspension Exam Airway Mallampati Class: II TM Dist: >3cm Neck ROM: Full Heart: rrr Lungs: cta Assessment and Plan Assessment Anesthesia Assessment: Anesthesia Plan Discussed and Chart Reviewed Final Anesthetic Review Family History of Problems with Anesthesia: No History of Problems with Anesthesia: No NPO: Yes ASA Class: II Final Preanesthetic Review: No Changes in Pt Med Stat, Meds/Allgs Chart Reviewed, Consent Obtained/Reviewed and Anes Risks/Benef Reviewed Patient Risk: Intermediate Procedure Risk: Low Anesthetic Plan Anesthetic Plan: MAC: and Agree w/ Assess. and Plan Disposition: Standard PACU
[2025-03-16 14:11] VITALS: BMI 31.4
[2025-03-18 07:17] VITALS: BMI 32.0
[2025-03-18] MEDS: Lactated Ringers 1,000 ML 100 ML IVCONT (07:33)
[2025-03-18 07:34] VITALS: BP 121/83; PULSE 79; RESP 16; TEMP 36.8; O2SAT 100
--- NOTE | 2025-03-18 08:38 | MHC.SHP ---
Pre-Procedural Eval Section A - 24 Hr Update-Section A only Date of Service: 03/18/25 Section B - Complete if H&P > 30 days Chief Complaint: screening Details of Present Illness: Hypertension Diverticulitis Renal cancer Fatty liver Cholelithiasis Obesity (BMI 30-39.9) Surgical History History of excision of lesion Present Medications: see Short Stay Collaborative assessment Allergies: Allergies Allergy/AdvReac Type Severity Reaction Status Date / Time Penicillins (PENICILLINS) Allergy Severe ANAPHYLAXIS Verified 01/14/25 08:15 strawberry Allergy Severe swelling Verified 01/14/25 08:15 Review of Systems Review of Systems Comment: 10 point ROS negative Exam Exam Comment: Gen appear: No acute distress HEENT: no icterus Chest: No overt resp distress Abd: soft, nontender, nondistended Psych: Stable affect, answering questions appropriately Neuro: A/Ox3 noted to move all extremities spontaneously Ext: no peripheral edema Plan Diagnosis/Plan: Unchanged I have reviewed the history and physical and performed a pertinent physical examination on my patient. No changes have occurred unless specified. Time Spent With Patient Time: Total time managing care of this patient today ____ minutes.
--- NOTE | 2025-03-18 09:14 | HO.OPN-COLON ---
Colonoscopy Operative Note Operative Note Date of Service: 03/18/25 Narrative: Procedure: Colonoscopy Indication: Screening Endoscopist: Meredith Asencio MD Anesthesia Provider: Dr Bruno Anesthesia type: MAC Instrument: Olympus [id number]-H190L Consent: Indication, risks vs benefits, and alternatives were discussed with the patient who gave written informed consent to proceed. EKG, pulse, pulse oximetry and blood pressure were monitored throughout the procedure. Please see anesthesia flowsheet. Procedure: The patient was brought to the procedure room and placed in the left lateral decubitus position. IV medications were administered by the anesthesia provider in attendance. A digital rectal exam was performed which was normal. A distal attachment cap was affixed to the tip of the colonoscope which was then inserted through the anus and advanced through the colon to the cecum at 75 cm,and terminal ileum. Appendiceal orifice and ileocecal valve were identified. Mucosa was carefully examined under high definition white light as the instrument was slowly withdrawn in a retrograde panoramic fashion. Retroflexion was performed in ascending colon and rectum. The procedure was not difficult. There were no immediate obvious complications. The quality of the prep was BBPS: 2+3+3 = adequate Withdrawal time 20 minutes. Limitations: No limitations. Findings: Mucosa: Normal to cecum. A few aphthous ulcers were noted in the terminal ileum up to 10 cm of intubation, the remaining proximal to it was normal. Cold forceps biopsies were taken from terminal ileum. Protruding lesions: 1 pedunculated polyp of size 18 mm in sigmoid colon. Hot snare polypectomy was performed. The polyp was completely removed and retrieved. A [place] resolution 360 Endoclip was placed at the polypectomy site to prevent post polypectomy bleeding. Medium internal hemorrhoids without stigmata of recent bleeding. Excavated lesions: Few small mouthed diverticula in sigmoid colon. Impression: 1. R/o Ileitis. 2. Total of 1 polyp removed 3. Diverticulosis 4. Internal hemorrhoids Recommendations: - Follow path results. - Repeat colonoscopy in 3 years if polyp is an adenoma.
[2025-03-18 09:21] VITALS: BP 93/64; PULSE 72; RESP 16; TEMP 36.2; O2SAT 98
[2025-03-18 09:40] VITALS: BP 116/74; PULSE 68; RESP 16; TEMP 36.3; O2SAT 97
== END 2025-03-18 09:50 | disposition home or self-care (01) ==
PROVIDERS: PCP Internal Medicine; Visit Provider Internal Medicine
PROC: 0DJD8ZZ Inspection of Lower Intestinal Tract, Via Natural or Artificial Opening Endoscopic (ICD-10-PCS; CPT 45378; principal; 2025-03-18 08:30)
DX: Z12.11 Encounter for screening for malignant neoplasm of colon (principal); K64.8 Other hemorrhoids; K57.30 Diverticulosis of large intestine without perforation or abscess without bleeding; K63.3 Ulcer of intestine; K52.9 Noninfective gastroenteritis and colitis, unspecified; D12.5 Benign neoplasm of sigmoid colon
CPT/HCPCS: 45385; 88305; J2003; J2704; J3010

== ENCOUNTER → 2025-03-18 07:10 | Outpatient (BNV) | payer BC, SELFPAY | PROVIDERS: PCP Internal Medicine; Visit Provider Internal Medicine | DX: Z12.11 Encounter for screening for malignant neoplasm of colon (principal); K63.5 Polyp of colon; K57.30 Diverticulosis of large intestine without perforation or abscess without bleeding; K64.8 Other hemorrhoids | CPT/HCPCS: 45385 ==